=== PATIENT | male | born 1975 | race African-American/Black ===

== ENCOUNTER → 2017-11-17 10:51 | Outpatient (CLI) | payer OTHER, SELFPAY ==
[2017-11-17 14:04] LABS: Albumin, Serum 3.7 g/dL (3.2-5.0); BUN 20 mg/dL (7-18); BUN/Creat Ratio 13.3 RATIO (10-20); Calcium,Total 8.6 mg/dL (8.5-10.1); Chloride 107 mmol/L (98-107); EST Glomerular Filtration Rate 54 mL/min (>60); Est Glom Filt Rate - Afr Amer 66 mL/min (>60); Glucose 103 mg/dL (74-106); Phosphorus 2.3 mg/dL (2.5-4.9); Potassium 3.9 mmol/L (3.5-5.1); Sodium Level 140 mmol/L (136-145)
[2017-11-17 14:14] LABS: Protein:Creat Ratio 241 mg/g CRE (0-200)
== END ==
PROVIDERS: Family Provider Family Medicine; PCP Family Medicine; Visit Provider Internal Medicine Nephrology
DX: N18.3 Chronic kidney disease, stage 3 (moderate) (principal)
CPT/HCPCS: 36415; 80069; 82570; 84156

== ENCOUNTER → 2017-11-25 14:27 | Outpatient (CLI) | payer OTHER, SELFPAY | PROVIDERS: Family Provider Family Medicine; PCP Family Medicine; Visit Provider Internal Medicine Nephrology | DX: N18.3 Chronic kidney disease, stage 3 (moderate) (principal) ==

== ENCOUNTER → 2018-07-31 10:03 | Outpatient (CLI) | payer OTHER, SELFPAY ==
[2018-07-31 11:11] LABS: Albumin, Serum 3.6 g/dL (3.2-5.0); BUN 20 mg/dL (7-18); BUN/Creat Ratio 14.8 RATIO (10-20); Calcium,Total 8.8 mg/dL (8.5-10.1); Chloride 103 mmol/L (98-107); Creatinine, Serum 1.35 mg/dL (0.70-1.30); EST Glomerular Filtration Rate 61 mL/min (>60); Est Glom Filt Rate - Afr Amer 74 mL/min (>60); Glucose 101 mg/dL (74-106); Potassium 3.7 mmol/L (3.5-5.1); Sodium Level 140 mmol/L (136-145)
== END ==
PROVIDERS: Family Provider Family Medicine; PCP Family Medicine; Referring Provider Internal Medicine Nephrology; Visit Provider Internal Medicine Nephrology
DX: N18.3 Chronic kidney disease, stage 3 (moderate) (principal)
CPT/HCPCS: 36415; 80069

== ENCOUNTER → 2019-05-14 | Outpatient (CLI) | payer OTHER, SELFPAY ==
[2019-05-14 11:39] LABS: Protein, Urine (Random) 43.9 mg/dL (<11.9); Protein:Creat Ratio 171 mg/g CRE (0-200)
[2019-05-14 12:07] LABS: Albumin, Serum 3.5 g/dL (3.2-5.0); BUN 22 mg/dL (7-18); BUN/Creat Ratio 15.3 RATIO (10-20); Calcium,Total 8.7 mg/dL (8.5-10.1); Chloride 107 mmol/L (98-107); Creatinine, Serum 1.44 mg/dL (0.70-1.30); EST Glomerular Filtration Rate 56 mL/min (>60); Est Glom Filt Rate - Afr Amer 68 mL/min (>60); Glucose 104 mg/dL (74-106); Potassium 3.6 mmol/L (3.5-5.1); Sodium Level 142 mmol/L (136-145)
== END | disposition home or self-care (01) ==
LOC: LAB.FUTURE 10:56
PROVIDERS: Family Provider Family Medicine; PCP Family Medicine; Referring Provider Internal Medicine Nephrology; Visit Provider Internal Medicine Nephrology
DX: I12.9 Hypertensive chronic kidney disease with stage 1 through stage 4 chronic kidney disease, or unspecified chronic kidney disease (principal); N18.3 Chronic kidney disease, stage 3 (moderate)
CPT/HCPCS: 36415; 80069; 82570; 84156

== ENCOUNTER → 2020-02-14 | Outpatient (CLI) | payer OTHER, SELFPAY ==
[2020-02-14 13:05] LABS: Albumin, Serum 3.6 g/dL (3.2-5.0); BUN 18 mg/dL (7-18); BUN/Creat Ratio 13.3 RATIO (10-20); Calcium,Total 8.9 mg/dL (8.5-10.1); Chloride 107 mmol/L (98-107); Creatinine, Serum 1.35 mg/dL (0.70-1.30); EST Glomerular Filtration Rate 61 mL/min (>60); Est Glom Filt Rate - Afr Amer 73 mL/min (>60); Glucose 98 mg/dL (74-106); Phosphorus 2.2 mg/dL (2.5-4.9); Potassium 3.7 mmol/L (3.5-5.1); Sodium Level 141 mmol/L (136-145)
[2020-02-14 13:17] LABS: Protein, Urine (Random) 51.5 mg/dL (<11.9); Protein:Creat Ratio 183 mg/g CRE (0-200)
== END | disposition home or self-care (01) ==
LOC: POLAB3 10:44
PROVIDERS: Family Provider Family Medicine; PCP Family Medicine; Visit Provider Internal Medicine Nephrology
DX: N18.3 Chronic kidney disease, stage 3 (moderate) (principal)
CPT/HCPCS: 36415; 80069; 82570; 84156

== ENCOUNTER 2020-09-01 11:33 | Emergency (ER) | payer OTHER, SELFPAY ==
[2020-09-01 11:35] VITALS: BP 162/98; PULSE 71; RESP 16; TEMP 36.6; O2SAT 100; BMI 39.1
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
== END 2020-09-01 13:22 | disposition home or self-care (01) ==
PROVIDERS: Emergency Provider Physician Assistant Medical; PCP Family Medicine
DX: S06.0X0A Concussion without loss of consciousness, initial encounter (principal); V43.52XA Car driver injured in collision with other type car in traffic accident, initial encounter; Y93.I9 Activity, other involving external motion; Y92.410 Unspecified street and highway as the place of occurrence of the external cause; Y99.8 Other external cause status
CPT/HCPCS: 70450; 99282

== ENCOUNTER → 2020-10-16 09:16 | Outpatient (CLI) | payer OTHER, SELFPAY ==
[2020-10-16 12:39] LABS: Albumin, Serum 3.7 g/dL (3.2-5.0); BUN 18 mg/dL (7-18); BUN/Creat Ratio 12.6 RATIO (10-20); Chloride 104 mmol/L (98-107); Creatinine, Serum 1.43 mg/dL (0.70-1.30); EST Glomerular Filtration Rate 57 mL/min (>60); Est Glom Filt Rate - Afr Amer 68 mL/min (>60); Glucose 96 mg/dL (74-106); Phosphorus 2.9 mg/dL (2.5-4.9); Potassium 3.8 mmol/L (3.5-5.1); Sodium Level 138 mmol/L (136-145)
[2020-10-16 12:52] LABS: Protein:Creat Ratio 397 mg/g CRE (0-200)
== END ==
PROVIDERS: PCP Family Medicine; Visit Provider Internal Medicine Nephrology
DX: N18.30 Chronic kidney disease, stage 3 unspecified (principal)
CPT/HCPCS: 36415; 80069; 82570; 84156

== ENCOUNTER 2020-12-12 08:10 | Outpatient (RCR) | payer OTHER, SELFPAY | END 2021-02-12 23:59 | LOC: IMMUN 08:10 | PROVIDERS: PCP Family Medicine; Visit Provider Family Medicine | DX: Z23 Encounter for immunization (principal) | CPT/HCPCS: 0001A; 0002A; 91300 ==

== ENCOUNTER → 2021-05-07 09:47 | Outpatient (CLI) | payer OTHER, SELFPAY ==
[2021-05-07 10:24] LABS: Protein, Urine (Random) 13.1 mg/dL (<11.9); Protein:Creat Ratio 80 mg/g CRE (0-200)
[2021-05-07 10:39] LABS: Albumin, Serum 3.7 g/dL (3.2-5.0); BUN 25 mg/dL (7-18); Calcium,Total 9.2 mg/dL (8.5-10.1); Chloride 106 mmol/L (98-107); Creatinine, Serum 1.25 mg/dL (0.70-1.30); EST Glomerular Filtration Rate 66 mL/min (>60); Est Glom Filt Rate - Afr Amer 80 mL/min (>60); Glucose 100 mg/dL (74-106); Phosphorus 3.2 mg/dL (2.5-4.9); Potassium 3.9 mmol/L (3.5-5.1); Sodium Level 138 mmol/L (136-145)
== END ==
PROVIDERS: PCP Family Medicine; Referring Provider Internal Medicine Nephrology; Visit Provider Internal Medicine Nephrology
DX: I12.9 Hypertensive chronic kidney disease with stage 1 through stage 4 chronic kidney disease, or unspecified chronic kidney disease (principal); N18.30 Chronic kidney disease, stage 3 unspecified
CPT/HCPCS: 36415; 80069; 82570; 84156

== ENCOUNTER → 2022-03-29 | Outpatient (CLI) | payer OTHER, SELFPAY ==
[2022-03-29 10:43] LABS: Hematocrit 46.7 % (40-54); Hemoglobin 15.2 g/dL (13.0-16.5); Mean Corp Hgb Conc 32.5 g/dL (32-36); Mean Corpuscular Hgb 29.6 pg (27.0-32.0); Mean Corpuscular Volume 90.9 fL (80-94); Mean Platelet Vol. 10.6 fl (6.2-12.0); Platelet Count 270 K/mm3 (150-450); RBC Distribution Width CV 12.5 % (11.6-14.6); RBC Distribution Width SD 41.3 fl (35.1-43.9); Red Blood Count 5.14 M/mm3 (4.6-6.2); White Blood Count 6.6 K/mm3 (4.4-11.0)
[2022-03-29 11:28] LABS: Albumin, Serum 3.4 g/dL (3.2-5.0); BUN 17 mg/dL (7-18); BUN/Creat Ratio 11.9 RATIO (10-20); Calcium,Total 8.8 mg/dL (8.5-10.1); Chloride 107 mmol/L (98-107); Creatinine, Serum 1.43 mg/dL (0.70-1.30); EST Glomerular Filtration Rate 56 mL/min (>60); Est Glom Filt Rate - Afr Amer 68 mL/min (>60); Glucose 106 mg/dL (74-106); Phosphorus 2.8 mg/dL (2.5-4.9); Potassium 3.7 mmol/L (3.5-5.1); Sodium Level 139 mmol/L (136-145)
== END | disposition home or self-care (01) ==
LOC: LAB 10:25
PROVIDERS: PCP Family Medicine; Visit Provider Internal Medicine Nephrology
DX: N18.30 Chronic kidney disease, stage 3 unspecified (principal)
CPT/HCPCS: 36415; 80069; 85027

== ENCOUNTER → 2022-11-29 | Outpatient (CLI) | payer OTHER, SELFPAY ==
[2022-11-29 10:18] LABS: Albumin, Serum 3.5 g/dL (3.2-5.0); BUN 20 mg/dL (7-18); BUN/Creat Ratio 15.2 RATIO (10-20); Calcium,Total 8.9 mg/dL (8.5-10.1); Chloride 108 mmol/L (98-107); Creatinine, Serum 1.32 mg/dL (0.70-1.30); EST Glomerular Filtration Rate 62 mL/min (>60); Est Glom Filt Rate - Afr Amer 74 mL/min (>60); Glucose 112 mg/dL (74-106); Phosphorus 2.6 mg/dL (2.5-4.9); Potassium 3.9 mmol/L (3.5-5.1); Sodium Level 140 mmol/L (136-145)
[2022-11-29 10:22] LABS: Protein, Urine (Random) 19.6 mg/dL (<11.9); Protein:Creat Ratio 169 mg/g CRE (0-200)
== END | disposition home or self-care (01) ==
LOC: LAB 09:14
PROVIDERS: PCP Family Medicine; Visit Provider Internal Medicine Nephrology
DX: N18.30 Chronic kidney disease, stage 3 unspecified (principal)
CPT/HCPCS: 36415; 80069; 82570; 84156

== ENCOUNTER → 2023-11-21 | Outpatient (CLI) | payer OTHER, SELFPAY ==
--- OUTSIDE RECORDS SUMMARY | 2023-11-21 10:41 | XMS RPT_ITS | CCD ---
Author Name Unknown Address [address] [facility] [address] [place] [address] Organization [facility] Care Team Providers Care Blade Sharpener Name Role Phone Sonido Knutson MD Primary Care Provider [phone] SONIDO KNUTSON Primary Care Unavailable SONIDO KNUTSON Attending SONIDO Benz Referring Unavailable SONIDO KNUTSON Primary Care Unavailable FALLON CULVER Attending Unavailable SONIDO KNUTSON Attending Unavailable SONIDO KNUTSON Primary Care Unavailable SONIDO KNUTSON Primary Care Unavailable SONIDO KNUTSON Primary Care Unavailable Medications Current Medications Medication Drug Class(es) Dates Sig (Normalized) Sig (Original) cephalexin 500 mg oral capsule (1 source) Cephalosporin Antibacterial Start: 06-10-2023 End: 06-17-2023 take 1 capsule by mouth twice daily cephALEXin (KEFLEX) 500 mg capsule Take 1 capsule by mouth two times a day for 7 days. 14 capsule 0 06/10/2023 06/17/2023 Active Completed/Discontinued Medications Medication Drug Class(es) Dates Sig (Normalized) Sig (Original) amLODIPine 10 mg oral tablet (6 sources) Dihydropyridine Calcium Channel Meri Start: 01-27-2023 End: 08-07-2023 take 1 tablet by mouth once daily amLODIPine (NORVASC) 10 mg tablet Take 1 tablet by mouth once daily. 90 tablet 3 08/07/2023 Active Problems Active Problems Problem Classification Problem Date Documented Da te Episodic/Chronic Chronic kidney disease (6 sources) Chronic kidney disease stage 3; Translations: [Stage 3 chronic kidney disease, unspecified whether stage 3a or 3b CKD (HCC)] Onset: 09-14-2017 Chronic Chronic kidney disease (1 source) Chronic kidney disease; Translations: [Stage 3 chronic kidney disease, unspecified whether stage 3a or 3b CKD (HCC)] Onset: 09-14-2017 Essential hypertension (8 sources) Essential hypertension; Translations: [Essential (primary) hypertension] Onset: 06-30-2007 Chronic Immunizations and screening for infectious disease (2 sources) Needs influenza immunization; Translations: [Encounter for immunization] Episodic Influenza (2 sources) Influenza-like illness; Translations: [Influenza due to unidentified influenza virus with other respiratory manifestations] 08-30-2023 Episodic Other nutritional; endocrine; and metabolic disorders (5 sources) Metabolic syndrome X; Translations: [Metabolic syndrome] Onset: 06-30-2007 02-01-2008 Chronic Other nutritional; endocrine; and metabolic disorders (5 sources) Morbid obesity; Translations: [Morbid (severe) obesity due to excess calories] Onset: 05-02-2010 03-31-2011 Chronic Other screening for suspected conditions (not mental disorders or infectious disease) (5 sources) Patient encounter status; Translations: [Encounter for screening for malignant neoplasm of colon] Onset: 11-09-2023 11-09-2023 Episodic Residual codes; unclassified (6 sources) Obstructive sleep apnea syndrome; Translations: [Obstructive sleep apnea (adult) (pediatric)] Onset: 05-02-2010 Chronic Residual codes; unclassified (1 source) Obstructive sleep apnea (adult) (pediatric); Translations: [ANNE (obstructive sleep apnea)] Onset: 09-02-2021 Chronic Superficial injury; contusion (1 source) Insect bite of trunk; Translations: [Insect bite (nonvenomous) of abdominal wall, initial encounter] 06-10-2023 Episodic Past or Other Problems Problem Classification Problem Date Documented Da te Episodic/Chronic Abdominal hernia (5 sources) Hernia of anterior abdominal wall; Translations: [Ventral hernia without obstruction or gangrene] Onset: 03-28-2013 03-28-2013 Episodic Residual codes; unclassified (5 sources) Family history of prostate cancer; Translations: [Family history of malignant neoplasm of prostate] Onset: 10-16-2020 10-16-2020 Episodic Results Test Name Value Interpretation Reference Range Facil ity Vital Signs Date Time Vital Sign Value Performing Clinician Clare atkins 11-09-2023 10:43-0500 Diastolic blood pressure 88 mm[Hg] Fallon Culver MD Work Phone: [facility] 11-09-2023 10:43-0500 Heart rate 67 /min Fallon Culver MD Work Phone: [facility] 11-09-2023 10:43-0500 Respiratory rate 18 /min Fallon Culver MD Work Phone: [facility] 11-09-2023 10:43-0500 SaO2% (BldA) [Mass fraction] 97 % Fallon Culver MD Work Phone: [facility] 11-09-2023 10:43-0500 Systolic blood pressure 136 mm[Hg] Fallon Culver MD Work Phone: [facility] 08-30-2023 08:36-0500 Body temperature 100.2 [degF] Bentley Arun SUPERANNUATION FUNDS MANAGER.PRESSURE VESSEL INSPECTOR Work Phone: [facility] 08-30-2023 08:36-0500 Body weight 163.29 kg Bentley Arun SUPERANNUATION FUNDS MANAGER.PRESSURE VESSEL INSPECTOR Work Phone: [facility] 08-30-2023 08:36-0500 Diastolic blood pressure 84 mm[Hg] Bentley Arun SUPERANNUATION FUNDS MANAGER.PRESSURE VESSEL INSPECTOR Work Phone: [facility] 08-30-2023 08:36-0500 Heart rate 106 /min Bentley Arun SUPERANNUATION FUNDS MANAGER.PRESSURE VESSEL INSPECTOR Work Phone: [facility] 08-30-2023 08:36-0500 Respiratory rate 18 /min Bentley Arnu SUPERANNUATION FUNDS MANAGER.PRESSURE VESSEL INSPECTOR Work Phone: [facility] 08-30-2023 08:36-0500 SaO2% (BldA) [Mass fraction] 96 % Bentley Arun SUPERANNUATION FUNDS MANAGER.PRESSURE VESSEL INSPECTOR Work Phone: [facility] 08-30-2023 08:36-0500 Systolic blood pressure 138 mm[Hg] Bentley Arun SUPERANNUATION FUNDS MANAGER.PRESSURE VESSEL INSPECTOR Work Phone: [facility] 06-10-2023 07:38-0400 Body temperature 97.11 [degF] Senia Shanda SUPERANNUATION FUNDS MANAGER.PRESSURE VESSEL INSPECTOR Work Phone: [facility] 06-10-2023 07:38-0400 Body weight 164.56 kg Senia Shanda SUPERANNUATION FUNDS MANAGER.PRESSURE VESSEL INSPECTOR Work Phone: [facility] 06-10-2023 07:38-0400 Diastolic blood pressure 116 mm[Hg] Senia Shanda SUPERANNUATION FUNDS MANAGER.PRESSURE VESSEL INSPECTOR Work Phone: [facility] 06-10-2023 07:38-0400 Heart rate 72 /min Senia Shanda SUPERANNUATION FUNDS MANAGER.PRESSURE VESSEL INSPECTOR Work Phone: [facility] 06-10-2023 07:38-0400 Respiratory rate 18 /min Senia Shanda SUPERANNUATION FUNDS MANAGER.PRESSURE VESSEL INSPECTOR Work Phone: [facility] 06-10-2023 07:38-0400 SaO2% (BldA) [Mass fraction] 96 % Senia Shanda SUPERANNUATION FUNDS MANAGER.PRESSURE VESSEL INSPECTOR Work Phone: [facility] 06-10-2023 07:38-0400 Systolic blood pressure 169 mm[Hg] Senia Shanda SUPERANNUATION FUNDS MANAGER.PRESSURE VESSEL INSPECTOR Work Phone: [facility] 07-22-2022 08:52-0500 Body weight 166.29 kg Sonido Knutson MD Work Phone: [facility] 07-22-2022 08:52-0500 Diastolic blood pressure 82 mm[Hg] Sonido Knutson MD Work Phone: [facility] 07-22-2022 08:52-0500 Heart rate 68 /min Sonido Knutson MD Work Phone: [facility] 07-22-2022 08:52-0500 Respiratory rate 16 /min Sonido Knutson MD Work Phone: [facility] 07-22-2022 08:52-0500 Systolic blood pressure 124 mm[Hg] Sonido Knutson MD Work Phone: [facility] Encounters Encounter Date Encounter Type Care Provider Facility Start: 11-09-2023 End: 11-09-2023 joshua KNUTSON Facility:[facility] Start: 11-09-2023 End: 11-09-2023 Subsequent hospital visit by physician Fallon Culver MD Work Phone: Ambulatory Surgery Procedures Date Procedure Procedure Detail Performing Clinician Start: 11-09-2023 Colonoscopy flx dx w /collj spec when pfrmd Sonido Knutson MD Work Phone: Start: 11-09-2023 Colonoscopy Fallon Culver MD Work Phone: Start: 08-30-2023 INFLUENZA A&B MOLECU LAR (POC) Bentley Dias SUPERANNUATION FUNDS MANAGER.PRESSURE VESSEL INSPECTOR Work Phone: Start: 07-22-2022 INFLUENZA VACCINE QUADRIVALENT 6 MO - 64 YRS IM Sonido Knutson MD Work Phone: Start: 07-22-2022 PFIZER-BIONTECH COVI D-19 BIVALENT BOOSTER VACCINE, AGE 12+ YR Sonido Knutson MD Work Phone: Start: 11-15-2018 Lipid 1996 panel - S myah or Plasma Senia Land SUPERANNUATION FUNDS MANAGER.PRESSURE VESSEL INSPECTOR Work Phone: Plan of Treatment Date Care Activity Detail Author Start: 03-29-2025 DIABETES SCREEN DIABETES SCREEN [facility] Start: 03-29-2025 Diabetes Screening Diabetes Screenin g [facility] Start: 11-08-2024 Screening for malign ant neoplasm of colon [facility] Start: 10-06-2024 Annual PCP Team Bread Baker mayda Disease Visit Annual PCP Team Chronic Disease Visit [facility] Start: 01-28-2024 Annual PCP Team Bread Baker mayda Disease Visit Annual PCP Team Chronic Disease Visit [facility] Start: 01-28-2024 Colorectal Cancer Screening Colorectal Cancer Screening [facility] Immunizations Immunization Date Immunization Notes Care Provider Fa cility 10-06-2023 COVID-19 vaccine, ag e 12+ yr, season (PFIZER-BIONTECH) Fallon Culver MD Work Phone: [facility] 10-06-2023 influenza, injectabl e, quadrivalent, contains preservative Fallon Culver MD Work Phone: [facility] 07-22-2022 COVID-19 booster vaccine, age 12+ yr, bivalent (PFIZER-BIONTECH) Sonido Knutson MD Work Phone: [facility] 07-22-2022 influenza, injectabl e, quadrivalent, contains preservative Sonido Knutson MD Work Phone: [facility] 07-22-2022 influenza virus vacc ine, unspecified formulation Senia Land PRESSURE VESSEL INSPECTOR Work Phone: [facility] 07-08-2021 influenza, seasonal, injectable Sonido Knutson MD Work Phone: [facility] 07-09-2020 influenza, seasonal, injectable Sonido Knutson MD Work Phone: [facility] 07-11-2019 influenza, seasonal, injectable Sonido Knutsno MD Work Phone: [facility] 07-12-2018 influenza, injectabl e, quadrivalent, contains preservative Sonido Knutson MD Work Phone: [facility] 07-08-2017 influenza, injectabl e, quadrivalent, contains preservative Sonido Knutson MD Work Phone: [facility] 08-24-2015 influenza, injectabl e, quadrivalent, contains preservative Sonido Knutson MD Work Phone: [facility] 07-27-2014 influenza, seasonal, injectable Sonido Knutson MD Work Phone: [facility] Work Phone: 04-29-2012 tetanus toxoid, redu lynn diphtheria toxoid, and acellular pertussis vaccine, adsorbed Sonido Knutson MD Work Phone: [facility] 08-18-2011 influenza virus vacc ine, unspecified formulation Sonido Knutson MD Work Phone: [facility] 08-06-2010 influenza virus vacc ine, unspecified formulation Sonido Knutson MD Work Phone: [facility] Work Phone: 06-30-2007 tetanus toxoid, redu lynn diphtheria toxoid, and acellular pertussis vaccine, adsorbed Sonido Knutson MD Work Phone: [facility] Work Phone: 05-18-2007 pneumococcal polysaccharide vaccine, 23 valent Sonido Knutson MD Work Phone: [facility] Work Phone: Payers Date Payer Category Payer Unknown [id number] 2019 Unknown [id number] Social History Date Type Detail Facility [facility]: [facility] Start: 07-22-2022 Tobacco use and exposure Smokeless tobacco non-user [facility] Start: 07-22-2022 End: 11-09-2023 Alcohol intake Current non-drinker of alcohol (finding) [facility] Start: 1975 Sex Assigned At Not on file C [facility] Start: 07-12-2022 End: 07-22-2022 Exposure to SARS-CoV-2 (event) Not sure [facility] Start: 01-27-2023 End: 06-10-2023 History of Social function [facility] Work Phone: Start: 01-27-2023 End: 06-10-2023 Tobacco use panel [facility] Work Phone: Adult Depression Screening Assessment 0 [facility] Work Phone: Clinical Notes 05-23-2009 to 11-09-2023 Discharge Instr - Nursing - Marnie Christianson RN - 11/09/2023 10:46 AM Marnie Trejo RN - 11/09/2023 10:13 AM Fallon Rosado MD - 11/09/2023 10:00 AM ESTPatient Instructions Note Date & Type Note Facility 11-09-2023 Note HNO ID: [id number] Author: MARNIE CHRISTIANSON RN Service: ? Author Type: Registered Nurse Type: Nursing Progress Note Filed: 11/09/2023 10:42 Note Text: Abdomen soft non-distended. Will continue to monitor. [facility] 11-09-2023 Miscellaneous Notes Formattin g of this note might be different from the original. The patient received a copy of Colonoscopy discharge instructions that contain information for how to contact the physician who performed the procedure and when to seek medical care. documented in this encounter [facility] 11-09-2023 Nurse Note Abdomen soft non-distended. Will continue to monitor. documented in this encounter [facility] 11-09-2023 History and physical note UPDATED PROCEDURAL SEDATION HISTORY AND PHYSICAL EXAMINATION SERVICE DATE: 11/09/2023 SERVICE TIME: 9:29 PHYSICAL EXAM MUST BE COMPLETED ON ADMISSION PROCEDURE: colonoscopy, possible biopsies Procedure Indications: screening for colon cancer The History and Physical (completed in the past 30 days) has been reviewed and the patient has been examined. The contents accurately reflect the patient's condition with the following additions or revisions since the H&P was completed. ASA Class: ASA Class:: Patient with severe systemic disease Examination indicates no changes. AIRWAY: Airway Visualization of Uvula: Yes Mouth opening greater than 2 fingerbreadths: Yes Neck Full Range of Motion: Yes LUNGS: Lungs clear to auscultation CARDIAC: Regular rhythm,Regular rate Provisional Diagnosis/Treatment Plan: colonoscopy, possible biopsies This H&P can be found in the Electronic Medical Record . SIGNATURE: Fallon Culver MD PATIENT NAME: Magnolia Henriquez DATE: November 09, 2023 TIME: 9:29 AM Source Note - Fallon Culver MD - 11/09/2023 10:00 AM EST HISTORY AND PHYSICAL Magnolia Henriquez 1975 REFERRING PHYSICIAN: Sonido Knutson MD CHIEF COMPLAINT: No chief complaint on file. HPI: The patient is a 48 year old male presents for screening for colon cancer via colonoscopy The patient denies blood in stools, denies abdominal pain, and denies changes in bowel habits. The patient notes no colon cancer in immediate family. The patient has not had previous colonoscopy. PAST MEDICAL HISTORY Diagnosis Date Chronic kidney disease 09/14/2017 Dysmetabolic syndrome X Hypertension Morbid obesity (HCC) ANNE (obstructive sleep apnea) on CPAP PAST SURGICAL HISTORY Procedure Laterality Date HERNIA REPAIR W/MESH 04/12/2013 Ventral hernia w/ medium Ventralex patch Current Outpatient Medications Medication Sig labetalol (TRANDATE) 200 mg tablet Take 1 tablet by mouth two times a day. amLODIPine (NORVASC) 10 mg tablet Take 1 tablet by mouth once daily. losartan-hydroCHLOROthiazide (HYZAAR) 100-25 mg per tablet Take 1 tablet by mouth once daily. triamcinolone acetonide (KENALOG) 0.1 % cream Apply 1 application to affected area three times a day. Apply sparingly to area for rash/itching. CPAP AutoPAP 10-20 cmH2O. Dx: ANNE No current facility-administered medications for this encounter. ALLERGIES: Patient has no known allergies. PERSONAL HISTORY: Social History Tobacco Use Smoking status: Never Smokeless tobacco: Never Vaping Use Vaping Use: Never used Substance Use Topics Alcohol use: No Drug use: No FAMILY HISTORY Problem Relation Age of Onset Thyroid Mother Kidney Disease Father dialysis Diabetes Other Cousins, uncles Hypertension Father REVIEW OF SYSTEMS: Denies fevers Denies chest pain Denies shortness of breath Physical examination: Vital signs in chart, reviewed and noted by me General - WD/WN in no apparent distress, alert and oriented Head - Normocephalic. EOM intact with sclera clear. Mouth with mucus membranes moist. Neck - supple with no jugular venous distention noted. Trachea is midline. Lungs - normal breath sounds, normal respiratory motion, no adventitial sounds noted. Heart - normal heart sounds. Regular rate. Abdomen - soft and benign. Extremities - no pitting edema noted. Skin - Normal skin integrity. Neurological - non focal Psych - calm and appropriate Impression: screening for colon cancer, Discussion/Plan/Recommendation s: I have discussed the above with the patient. I have offered colonoscopy , possible biopsies I have explained the procedure to the patient. I have counseled the patient as to the risks of the procedure, including but not limited to: infection, bleeding, injury to any intrabdominal organs such as liver/spleen, perforation of the GI tract, inability to complete the procedure, complications of anesthesia, etc. - the patient understands. The patient wishes to proceed. I have answered all questions to the patient s satisfaction and the patient has no further questions. . Fallon Culver MD HISTORY AND PHYSICAL Magnolia Henriquez 1975 REFERRING PHYSICIAN: Sonido Knutson MD CHIEF COMPLAINT: No chief complaint on file. HPI: The patient is a 48 year old male presents for screening for colon cancer via colonoscopy The patient denies blood in stools, denies abdominal pain, and denies changes in bowel habits. The patient notes no colon cancer in immediate family. The patient has not had previous colonoscopy. PAST MEDICAL HISTORY Diagnosis Date Chronic kidney disease 09/14/2017 Dysmetabolic syndrome X Hypertension Morbid obesity (HCC) ANNE (obstructive sleep apnea) on CPAP PAST SURGICAL HISTORY Procedure Laterality Date HERNIA REPAIR W/MESH 04/12/2013 Ventral hernia w/ medium Ventralex patch Current Outpatient Medications Medication Sig labetalol (TRANDATE) 200 mg tablet Take 1 tablet by mouth two times a day. amLODIPine (NORVASC) 10 mg tablet Take 1 tablet by mouth once daily. losartan-hydroCHLOROthiazide (HYZAAR) 100-25 mg per tablet Take 1 tablet by mouth once daily. triamcinolone acetonide (KENALOG) 0.1 % cream Apply 1 application to affected area three times a day. Apply sparingly to area for rash/itching. CPAP AutoPAP 10-20 cmH2O. Dx: ANNE No current facility-administered medications for this encounter. ALLERGIES: Patient has no known allergies. PERSONAL HISTORY: Social History Tobacco Use Smoking status: Never Smokeless tobacco: Never Vaping Use Vaping Use: Never used Substance Use Topics Alcohol use: No Drug use: No FAMILY HISTORY Problem Relation Age of Onset Thyroid Mother Kidney Disease Father dialysis Diabetes Other Cousins, uncles Hypertension Father REVIEW OF SYSTEMS: Denies fevers Denies chest pain Denies shortness of breath Physical examination: Vital signs in chart, reviewed and noted by me General - WD/WN in no apparent distress, alert and oriented Head - Normocephalic. EOM intact with sclera clear. Mouth with mucus membranes moist. Neck - supple with no jugular venous distention noted. Trachea is midline. Lungs - normal breath sounds, normal respiratory motion, no adventitial sounds noted. Heart - normal heart sounds. Regular rate. Abdomen - soft and benign. Extremities - no pitting edema noted. Skin - Normal skin integrity. Neurological - non focal Psych - calm and appropriate Impression: screening for colon cancer, Discussion/Plan/Recommendation s: I have discussed the above with the patient. I have offered colonoscopy , possible biopsies I have explained the procedure to the patient. I have counseled the patient as to the risks of the procedure, including but not limited to: infection, bleeding, injury to any intrabdominal organs such as liver/spleen, perforation of the GI tract, inability to complete the procedure, complications of anesthesia, etc. - the patient understands. The patient wishes to proceed. I have answered all questions to the patient s satisfaction and the patient has no further questions. . Fallon Culver MD documented in this encounter [facility] 10-06-2023 Note HNO ID: [id number] Author: ?, ?, ? Service: ? Author Type: ? Type: Progress Notes Filed: 10/06/2023 14:15 Note Text: 10-06...contacted patient scheduled colonoscopy 11-10-2023. Sent [employer] Prep Instructions to his [employer] Roslyn Hall [facility] 10-06-2023 Note HNO ID: [id number] Author: SONIDO KNUTSON MD Service: ? Author Type: Physician Type: Progress Notes Filed: 10/06/2023 10:39 Note Text: Chief Complaint Patient presents with: Follow Up Immunizations: Flu vaccination HPI aMgnolia Henriquez is a 48 year old male who presents here today for a follow up. Pt here today for a 6 month follow up. Son is 11 years old, busy with sports, football and basketball. HM: Depression screening; denies feeling depressed or hopeless. Depression screening tool completed and reviewed. Based on score and interview, patient is not at risk for depression. Screening tool discussed with patient, and I recommended no further intervention at this time Denies any stomach, bowel or urinary issues. No family hx of colon cancer. Family hx of prostate cancer. HTN: Denies checking his BP at home or having symptoms of chest pain, sob or dizziness. Does have a monitor at home if he needs too. On current regimen of Norvasc 10 mg once daily, Hyzaar 100-25 mg once daily and Labetalol 100 mg 2 tab po bid. CKD: Follows with Dr. Martino, Nephrology every 6 months. ANNE: Uses CPAP 10-20 cm of water. Doing well with use of CPAP, feels he sleeps well with machine. Receives supplies through [employer]. Lipid: Tries to watch diet and walks some for exercise. No medications. Past medical history, appointments, medications, allergies reviewed. Previous Medical History PAST MEDICAL HISTORY Diagnosis Date Chronic kidney disease 09/14/2017 Dysmetabolic syndrome X Hypertension Morbid obesity (HCC) ANNE (obstructive sleep apnea) on CPAP Previous Surgical History PAST SURGICAL HISTORY Procedure Laterality Date HERNIA REPAIR W/MESH 04/12/2013 Ventral hernia w/ medium Ventralex patch Family History FAMILY HISTORY Problem Relation Age of Onset Thyroid Mother Kidney Disease Father dialysis Diabetes Other Cousins, uncles Hypertension Father Patient Allergies ALLERGIES No Known Allergies Current Medications Current Outpatient Medications on File Prior to Visit Medication Sig labetalol (TRANDATE) 200 mg tablet Take 1 tablet by mouth two times a day. amLODIPine (NORVASC) 10 mg tablet Take 1 tablet by mouth once daily. losartan-hydroCHLOROthiazide (HYZAAR) 100-25 mg per tablet Take 1 tablet by mouth once daily. triamcinolone acetonide (KENALOG) 0.1 % cream Apply 1 application to affected area three times a day. Apply sparingly to area for rash/itching. CPAP AutoPAP 10-20 cmH2O. Dx: ANNE No current facility-administered medications on file prior to visit. Social History Social History Tobacco Use Smoking status: Never Smokeless tobacco: Never Vaping Use Vaping Use: Never used Substance Use Topics Alcohol use: No Drug use: No EXAM: BP 138/84 Pulse 84 Resp 16 Wt (!) 160.1 kg (352 lb 14.4 oz) BMI 42.96 kg/m? General Appearance: Well appearing, alert, in no acute distress, well-hydrated, well nourished. and Obese. Lungs: Lungs clear to auscultation. No wheezing, rhonchi, rales.. Heart: RRR without murmur, gallop, or rubs. No ectopy. Health Maintenance List Hepatitis B Vaccine(1 of 3 - 3-dose series) Never done BP Controlled (<130/80) Never done DTaP,Tdap,Td Vaccine(3 - Td or Tdap) due on 04/29/2022 Serum Creatinine due on 03/29/2023 Hemoglobin/Hematocrit due on 03/29/2023 Influenza Vaccine(1) due on 05/08/2023 Covid-19 Vaccine( - season) due on 05/08/2023 Depression Assessment due on 09/07/2023 Colorectal Cancer Screening due on 01/28/2024 Hepatitis C Screening due on 01/28/2024 HIV Screening due on 01/28/2024 Lipid Screening due on 11/16/2023 Annual PCP Team Chronic Disease Visit due on 01/28/2024 Diabetes Screening due on 03/29/2025 Data reviewed None ASSESSMENT/PLAN: 1. Primary hypertension - ICD9: 401.9, ICD10: I10 (primary diagnosis) - Controlled - Continue current medications - Recommend home blood pressure monitoring, to bring results to next visit - Encouraged sodium restriction, DASH or Mediterranean diet - Recommend regular aerobic exercise 2. Need for influenza vaccination - ICD9: V04.81, ICD10: Z23 - INFLUENZA VACCINE, AGE 6 MO - 64 YR, QUADRIVALENT (AFLURIA, FLULAVAL, FLUZONE) 3. Need for vaccination - ICD9: V05.9, ICD10: Z23 - INFLUENZA VACCINE, AGE 6 MO - 64 YR, QUADRIVALENT (AFLURIA, FLULAVAL, FLUZONE) - Kilopass-MetaModix COVID-19 VACCINE ( SEASON) AGE 12+ YR 4. Special screening for malignant neoplasms, colon - ICD9: V76.51, ICD10: Z12.11 - COLONOSCOPY SCREENING - PEG 3350 240 GRAM-ELECTROLYTES 22.72 GRAM-6.72 G-5.84 G POWDR FOR SOLN 5. ANNE (obstructive sleep apnea) AHI 110 - ICD9: 327.23, ICD10: G47.33 Continue CPAP 6. Stage 3 chronic kidney disease, unspecified whether stage 3a or 3b CKD (HCC) - ICD9: 585.3, ICD10: N18.30 - eGFR: Stable - Follow up with kidney medicine 7. Morbid obesity (HCC) - ICD9: 278.01, ICD10: E66.01 Stable - Behavioral inte (more content not included)... [facility] 08-30-2023 Note HNO ID: [id number] Author: Bentley Dias APRN.GAURANG Service: ? Author Type: Nurse Practitioner Type: Progress Notes Filed: 08/30/2023 9:35 AM Note Text: Subjective HPI HPI Magnolia Henriquez is a 48 year old male who presents today for CC of cough, congestion, fever, body aches. This started 2 days ago. Has tried otc medication for relief. Symptoms are worsened by nothing. Risk factors sick exposures at work. Hx of renal disease. .Patient presents with: Chest Congestion: cough and fatigue x 2 days PAST MEDICAL HISTORY Diagnosis Date Chronic kidney disease 09/14/2017 Dysmetabolic syndrome X Hypertension Morbid obesity (HCC) ANNE (obstructive sleep apnea) on CPAP PAST SURGICAL HISTORY Procedure Laterality Date HERNIA REPAIR W/MESH 04/12/2013 Ventral hernia w/ medium Ventralex patch ALLERGIES Patient has no known allergies. MEDICATIONS labetalol (TRANDATE) 200 mg tablet Take 1 tablet by mouth two times a day. amLODIPine (NORVASC) 10 mg tablet Take 1 tablet by mouth once daily. losartan-hydroCHLOROthiazide (HYZAAR) 100-25 mg per tablet Take 1 tablet by mouth once daily. triamcinolone acetonide (KENALOG) 0.1 % cream Apply 1 application to affected area three times a day. Apply sparingly to area for rash/itching. CPAP AutoPAP 10-20 cmH2O. Dx: ANNE FAMILY HISTORY Problem Relation Age of Onset Thyroid Mother Kidney Disease Father dialysis Diabetes Other Cousins, uncles Hypertension Father Social History Tobacco Use Smoking status: Never Smokeless tobacco: Never Vaping Use Vaping Use: Never used Substance Use Topics Alcohol use: No Drug use: No Review of Systems Constitutional: Positive for fever. HENT: Positive for congestion and sore throat. Negative for ear pain and nosebleeds. Respiratory: Positive for cough. Negative for shortness of breath and wheezing. Musculoskeletal: Negative for neck pain. Skin: Negative for itching and rash. Objective Blood pressure 138/84, pulse 106, temperature 37.9 ?C (100.2 ?F), resp. rate 18, weight (!) 163.3 kg (360 lb), SpO2 96%. 65 Physical Exam Constitutional: General: He is not in acute distress. Appearance: He is not toxic-appearing or diaphoretic. HENT: Head: Normocephalic and atraumatic. Right Ear: Hearing, tympanic membrane, ear canal and external ear normal. Left Ear: Hearing, tympanic membrane, ear canal and external ear normal. Nose: Nose normal. Mouth/Throat: Pharynx: Uvula midline. No pharyngeal swelling, oropharyngeal exudate, posterior oropharyngeal erythema or uvula swelling. Eyes: General: Lids are normal. No scleral icterus. Right eye: No discharge. Left eye: No discharge. Conjunctiva/sclera: Conjunctivae normal. Pupils: Pupils are equal, round, and reactive to light. Neck: Trachea: Trachea normal. Cardiovascular: Rate and Rhythm: Normal rate and regular rhythm. Heart sounds: Normal heart sounds. Pulmonary: Effort: Pulmonary effort is normal. Breath sounds: Normal breath sounds. Musculoskeletal: Cervical back: Normal range of motion and neck supple. Lymphadenopathy: Cervical: No cervical adenopathy. Right cervical: No superficial cervical adenopathy. Left cervical: No superficial cervical adenopathy. Skin: Findings: No rash. Neurological: Mental Status: He is alert and oriented to person, place, and time. ASSESSMENT/PLAN: 1. Influenza A - ICD9: 487.1, ICD10: J10.1 (primary diagnosis) -discussed expected course -discussed supportive care -discussed red flags and reasons for f/u -discussed contagiousness, reason/when close family members should f/u, and whom to avoid -f/u in 3-5 days if symptoms worsening Creatinine clearance calculated to be 84 - OSELTAMIVIR 75 MG CAPSULE 2. Influenza-like illness - ICD9: 487.1, ICD10: J11.1 - INFLUENZA AANDB MOLECULAR (POC) - OSELTAMIVIR 75 MG CAPSULE Bentley Dias APRN.[facility] 08-30-2023 History of Presen t illness Narrative Subjective HPI HPI Magnolia Henriquez is a 48 year old male who presents today for CC of cough, congestion, fever, body aches. This started 2 days ago. Has tried otc medication for relief. Symptoms are worsened by nothing. Risk factors sick exposures at work. Hx of renal disease. .Patient presents with: Chest Congestion: cough and fatigue x 2 days PAST MEDICAL HISTORY Diagnosis Date Chronic kidney disease 09/14/2017 Dysmetabolic syndrome X Hypertension Morbid obesity (HCC) ANNE (obstructive sleep apnea) on CPAP PAST SURGICAL HISTORY Procedure Laterality Date HERNIA REPAIR W/MESH 04/12/2013 Ventral hernia w/ medium Ventralex patch ALLERGIES Patient has no known allergies. MEDICATIONS labetalol (TRANDATE) 200 mg tablet Take 1 tablet by mouth two times a day. amLODIPine (NORVASC) 10 mg tablet Take 1 tablet by mouth once daily. losartan-hydroCHLOROthiazide (HYZAAR) 100-25 mg per tablet Take 1 tablet by mouth once daily. triamcinolone acetonide (KENALOG) 0.1 % cream Apply 1 application to affected area three times a day. Apply sparingly to area for rash/itching. CPAP AutoPAP 10-20 cmH2O. Dx: ANNE FAMILY HISTORY Problem Relation Age of Onset Thyroid Mother Kidney Disease Father dialysis Diabetes Other Cousins, uncles Hypertension Father Social History Tobacco Use Smoking status: Never Smokeless tobacco: Never Vaping Use Vaping Use: Never used Substance Use Topics Alcohol use: No Drug use: No Review of Systems Constitutional: Positive for fever. HENT: Positive for congestion and sore throat. Negative for ear pain and nosebleeds. Respiratory: Positive for cough. Negative for shortness of breath and wheezing. Musculoskeletal: Negative for neck pain. Skin: Negative for itching and rash. Objective Blood pressure 138/84, pulse 106, temperature 37.9 C (100.2 F), resp. rate 18, weight (!) 163.3 kg (360 lb), SpO2 96%. 65 Physical Exam Constitutional: General: He is not in acute distress. Appearance: He is not toxic-appearing or diaphoretic. HENT: Head: Normocephalic and atraumatic. Right Ear: Hearing, tympanic membrane, ear canal and external ear normal. Left Ear: Hearing, tympanic membrane, ear canal and external ear normal. Nose: Nose normal. Mouth/Throat: Pharynx: Uvula midline. No pharyngeal swelling, oropharyngeal exudate, posterior oropharyngeal erythema or uvula swelling. Eyes: General: Lids are normal. No scleral icterus. Right eye: No discharge. Left eye: No discharge. Conjunctiva/sclera: Conjunctivae normal. Pupils: Pupils are equal, round, and reactive to light. Neck: Trachea: Trachea normal. Cardiovascular: Rate and Rhythm: Normal rate and regular rhythm. Heart sounds: Normal heart sounds. Pulmonary: Effort: Pulmonary effort is normal. Breath sounds: Normal breath sounds. Musculoskeletal: Cervical back: Normal range of motion and neck supple. Lymphadenopathy: Cervical: No cervical adenopathy. Right cervical: No superficial cervical adenopathy. Left cervical: No superficial cervical adenopathy. Skin: Findings: No rash. Neurological: Mental Status: He is alert and oriented to person, place, and time. ASSESSMENT/PLAN: 1. Influenza A - ICD9: 487.1, ICD10: J10.1 (primary diagnosis) -discussed expected course -discussed supportive care -discussed red flags and reasons for f/u -discussed contagiousness, reason/when close family members should f/u, and whom to avoid -f/u in 3-5 days if symptoms worsening Creatinine clearance calculated to be 84 - OSELTAMIVIR 75 MG CAPSULE 2. Influenza-like illness - ICD9: 487.1, ICD10: J11.1 - INFLUENZA A&B MOLECULAR (POC) - OSELTAMIVIR 75 MG CAPSULE Bentley Dias APRN.CNP documented in this encounter [facility] 08-07-2023 Miscellaneous Notes Formattin g of this note is different from the original. The following approved medication requests have been transmitted electronically. Requested Prescriptions Pending Prescriptions Disp Refills labetalol (TRANDATE) 200 mg tablet 180 tablet 3 Sig: Take 1 tablet by mouth two times a day. amLODIPine (NORVASC) 10 mg tablet 90 tablet 3 Sig: Take 1 tablet by mouth once daily. losartan-hydroCHLOROthiazide (HYZAAR) 100-25 mg per tablet 90 tablet 3 Sig: Take 1 tablet by mouth once daily. Irving Smith APRN.CNP Patient last visit with PCP 01/27/23 Follow up appointment scheduled 09/01/23 Suyapa Bee Ma documented in this encounter [facility] 06-10-2023 Note HNO ID: [id number] Author: Senia Land APRN.PRESSURE VESSEL INSPECTOR Service: ? Author Type: Nurse Practitioner Type: Progress Notes Filed: 06/10/2023 8:13 AM Note Text: Subjective HPI HPI Magnolia Henriquez is a 47 year old male who presents today for CC of insect bite on stomach that is itchy, and hard. He did not see the insect. He has not used any medications or treatment. He denies any fever, or redness. States it does feel a little smaller today BP 169/116 Pulse 72 Temp 36.2 ?C (97.1 ?F) Resp 18 Wt (!) 164.6 kg (362 lb 12.8 oz) SpO2 96% BMI 44.16 kg/m? BP recheck - 142/96. He did not take medications yesterday, he did this am Social History Tobacco Use Smoking status: Never Smokeless tobacco: Never Vaping Use Vaping Use: Never used Substance Use Topics Alcohol use: No Drug use: No PAST MEDICAL HISTORY Diagnosis Date Dysmetabolic syndrome X Hypertension Morbid obesity (HCC) ANNE (obstructive sleep apnea) on CPAP I have confirmed and edited as necessary, the [facility] Review of Systems Constitutional: Negative for chills and fever. Musculoskeletal: Negative for joint pain and myalgias. Skin: Positive for itching. Negative for rash. Site swelling, pruritic, no painful All other systems reviewed and are negative. Objective Physical Exam Vitals and nursing note reviewed. Pulmonary: Effort: Pulmonary effort is normal. Skin: General: Skin is warm and dry. Comments: Swelling, size of golfball, non tender, pruritic Neurological: Mental Status: He is alert and oriented to person, place, and time. Psychiatric: Mood and Affect: Affect normal. ASSESSMENT/PLAN: 1. Insect bite of abdominal wall, initial encounter - ICD9: 911.4, E906.4, ICD10: S30.861A, W57.XXXA Appears to be inflammatory Tylenol/ibuprofen prn Mupirocin to area as discussed Benadryl or zyrtec as needed for itching. If increasing redness or swelling start keflex as discussed. Patient will call Dr. Martino's office for recheck of BP Diagnosis and treatment plan were discussed and questions were answered to the patient's satisfaction. Pt acknowledged understanding of concepts and follow up plan. Specific signs and symptoms that would indicate the need for higher level of care were discussed in detail warranting prompt ER evaluation. Senia Land APRN.CNP [facility] 06-10-2023 Instructions Senia Land APRN.CNP - 06/10/2023 7:55 AM EDT Triamcinolone cream to area for itching Keep area clean and dry Site care-soap/water wash followed by antibacterial ointment 2-3 x a day Watch for signs of infection which are redness, swelling and pus like drainage - if worsening signs start keflex Cool compress to sting site as needed Benadryl or zyrtec as needed for itching. With blood pressure elevation, call Dr Martino's office and recheck BP in one week. * Seek medical care immediately, call 911, go to ER if you have chest pain, difficulty breathing, shortness of breath, inability to swallow. documented in this encounter [facility] 06-10-2023 History of Presen t illness Narrative Images from the original note were not included. Subjective HPI HPI Magnolia Henriquez is a 47 year old male who presents today for CC of insect bite on stomach that is itchy, and hard. He did not see the insect. He has not used any medications or treatment. He denies any fever, or redness. States it does feel a little smaller today BP 169/116 Pulse 72 Temp 36.2 C (97.1 F) Resp 18 Wt (!) 164.6 kg (362 lb 12.8 oz) SpO2 96% BMI 44.16 kg/m BP recheck - 142/96. He did not take medications yesterday, he did this am Social History Tobacco Use Smoking status: Never Smokeless tobacco: Never Vaping Use Vaping Use: Never used Substance Use Topics Alcohol use: No Drug use: No PAST MEDICAL HISTORY Diagnosis Date Dysmetabolic syndrome X Hypertension Morbid obesity (HCC) ANNE (obstructive sleep apnea) on CPAP I have confirmed and edited as necessary, the [facility] Review of Systems Constitutional: Negative for chills and fever. Musculoskeletal: Negative for joint pain and myalgias. Skin: Positive for itching. Negative for rash. Site swelling, pruritic, no painful All other systems reviewed and are negative. Objective Physical Exam Vitals and nursing note reviewed. Pulmonary: Effort: Pulmonary effort is normal. Skin: General: Skin is warm and dry. Comments: Swelling, size of golfball, non tender, pruritic Neurological: Mental Status: He is alert and oriented to person, place, and time. Psychiatric: Mood and Affect: Affect normal. ASSESSMENT/PLAN: 1. Insect bite of abdominal wall, initial encounter - ICD9: 911.4, E906.4, ICD10: S30.861A, W57.XXXA Appears to be inflammatory Tylenol/ibuprofen prn Mupirocin to area as discussed Benadryl or zyrtec as needed for itching. If increasing redness or swelling start keflex as discussed. Patient will call Dr. Martino's office for recheck of BP Diagnosis and treatment plan were discussed and questions were answered to the patient's satisfaction. Pt acknowledged understanding of concepts and follow up plan. Specific signs and symptoms that would indicate the need for higher level of care were discussed in detail warranting prompt ER evaluation. Senia Land APRN.GAURANG documented in this encounter [facility] 01-27-2023 Note HNO ID: [id number] Author: Sonido Knutson MD Service: ? Author Type: Physician Type: Progress Notes Filed: 01/27/2023 9:17 AM Note Text: Chief Complaint Patient presents with: F/U 6 Month HPI Magnolia Henriquez is a 47 year old male who presents here today for a 6 month follow up. Pt here today for a 6 month follow up. Busy working and playing with his 10 year old son. GI/Uro - Denies any stomach, bowel or urinary issues. In the past has not been interested in Colonoscopy testing. CKD - Follows with Dr. Gunner Higgins twice yearly. Stable, monitoring through routine labs, overall satisfied with his levels. Labs recently done in November. HTN - Denies checking his BP at home (has machine) or having symptoms of chest pain, sob or dizziness. On current regimen of Norvasc 10 mg once daily. Hyzaar 100-25 mg daily and Labetalol 100 mg 2 tabs po bid. Denies any exercise other then walking. ANNE - Uses CPAP 10-20 cm of water. Feels he does well with this.Tolerates well. Does note that his supplies are getting outdate and may need a new one. Has had his for over 5 years roughly. Receives supplies through [employer]. Continue to work on diet and watching diet to lose weight. HM - Declines Hep C/HIV screening. Declines Colorectal Screening at this time. Declines feeling down, depressed or hopeless. Depression screening tool completed and reviewed. Based on score and interview, patient is not at risk for depression. Screening tool discussed with patient, and I recommended no further intervention at this time Past medical history, appointments, medications, allergies reviewed. Previous Medical History PAST MEDICAL HISTORY Diagnosis Date Dysmetabolic syndrome X Hypertension Morbid obesity (HCC) ANNE (obstructive sleep apnea) on CPAP Previous Surgical History PAST SURGICAL HISTORY Procedure Laterality Date HERNIA REPAIR W/MESH 04/12/2013 Ventral hernia w/ medium Ventralex patch Family History FAMILY HISTORY Problem Relation Age of Onset Thyroid Mother Kidney Disease Father dialysis Diabetes Other Cousins, uncles Hypertension Father Patient Allergies ALLERGIES No Known Allergies Current Medications Current Outpatient Medications on File Prior to Visit Medication Sig labetalol (TRANDATE) 200 mg tablet Take 1 tablet by mouth twice daily. amLODIPine (NORVASC) 10 mg tablet Take 1 tablet by mouth once daily. losartan-hydroCHLOROthiazide (HYZAAR) 100-25 mg per tablet Take 1 tablet by mouth once daily. CPAP Pressure change: autoPAP 10-20 cmH2O. Dx: ANNE No current facility-administered medications on file prior to visit. Social History Social History Tobacco Use Smoking status: Never Smokeless tobacco: Never Vaping Use Vaping Use: Never used Substance Use Topics Alcohol use: No Drug use: No EXAM: BP 134/86 (BP Site: Left Arm, BP Position: Sitting, BP Cuff Size: Large Adult) Pulse 66 Resp 16 Wt (!) 164.6 kg (362 lb 12.8 oz) BMI 44.16 kg/m? General Appearance: Well appearing, alert, in no acute distress, well-hydrated, well nourished. and Obese. Lungs: Lungs clear to auscultation. No wheezing, rhonchi, rales.. Heart: RRR without murmur, gallop, or rubs. No ectopy. Health Maintenance List HEPATITIS B(1 of 3 - 3-dose series) Never done HEPATITIS C SCREENING Never done HIV SCREENING Never done BP CONTROLLED (<130/80) Never done COLORECTAL CANCER SCREENING Never done DTAP,TDAP,TD(3 - Td or Tdap) due on 04/29/2022 DEPRESSION ASSESSMENT due on 09/07/2022 SERUM CREATININE due on 03/29/2023 HEMOGLOBIN/HEMATOCRIT due on 03/29/2023 ANNUAL PCP TEAM CHRONIC DISEASE VISIT due on 07/22/2023 LIPID SCREEN due on 11/16/2023 DIABETES SCREEN due on 03/29/2025 INFLUENZA Completed COVID-19 VACCINE Completed Data reviewed External labs 11/27: BUN/Cr 20/.32, Glucose 112/ ASSESSMENT/PLAN: 1. Essential hypertension - ICD9: 401.9, ICD10: I10 (primary diagnosis) - suboptimal control - Continue current medication(s) - Recommended regular aerobic exercise. - Recommend home blood pressure monitoring, to bring results in on next visit - Goal of BP <130/80 2. Stage 3 chronic kidney disease, unspecified whether stage 3a or 3b CKD (HCC) - ICD9: 585.3, ICD10: N18.30 - Overall stable - Cont f/u with Nephrology w/routine labs - Continue current medication regimen. 3. ANNE (obstructive sleep apnea) AHI 110 - ICD9: 327.23, ICD10: G47.33 - Rx sent to [facility] - CPAP 6 mo f/u. Labs monitored through Nephrology. I agree with the Chief Complaint, ROS, and Past Histories independently gathered by the clinical vp software support and the remaining scribed note accurately describes my personal service to the patient. Medical Decision Making: Problems: Moderate: 2+ stable chronic illnesses Risk: Moderate: Drug management Medical Decision Making Level: 4 - Moderate Sonido Knutson MD The documentation for this note was comp (more content not included)... [facility] 07-22-2022 History of Presen t illness Narrative Chief Complaint Patient presents with: F/U 6 Month HPI Magnolia Henriquez is a 46 year old male who presents here today for a 6 month follow up. Pt here today for a delayed 6 month f/u, due to no showing his OV in April. 6 minutes late to visit today. GI/Uro - Denies any stomach, bowel or urinary issues. Not interested in Colonoscopy testing at this time. CKD - Follows with NephDr. Gunner nelson twice yearly. Stable, monitoring through routine labs. 03/29/22 Cr 1.43. HTN - Denies checking his BP at home (has machine) or having symptoms of chest pain, sob or dizziness. On current regimen of Norvasc 10 mg once daily. Hyzaar 100-25 mg daily and Labetalol 100 mg 2 tabs po bid. Denies any exercise other then walking. ANNE - Uses AutoPap 10-20 cm of water. Feels he does well with this.Tolerates well. Receives supplies through [employer]. HM - Agrees to flu shot. Agrees to Covid vaccine today. Declines depression symptoms. Not interested in Colon screening at this time. Past medical history, appointments, medications, allergies reviewed. Previous Medical History PAST MEDICAL HISTORY Diagnosis Date Dysmetabolic syndrome X Hypertension Morbid obesity (HCC) ANNE (obstructive sleep apnea) on CPAP Previous Surgical History PAST SURGICAL HISTORY Procedure Laterality Date HERNIA REPAIR W/MESH 04/12/2013 Ventral hernia w/ medium Ventralex patch Family History FAMILY HISTORY Problem Relation Age of Onset Thyroid Mother Kidney Disease Father dialysis Diabetes Other Cousins, uncles Hypertension Father Patient Allergies ALLERGIES No Known Allergies Current Medications Current Outpatient Medications on File Prior to Visit Medication Sig labetalol (TRANDATE) 100 mg tablet Take 2 tablets by mouth twice daily. amLODIPine (NORVASC) 10 mg tablet Take 1 tablet by mouth once daily. losartan-hydroCHLOROthiazide (HYZAAR) 100-25 mg per tablet Take 1 tablet by mouth once daily. CPAP Pressure change: autoPAP 10-20 cmH2O. Dx: ANNE No current facility-administered medications on file prior to visit. Social History Social History Tobacco Use Smoking status: Never Smokeless tobacco: Never Vaping Use Vaping Use: Never used Substance Use Topics Alcohol use: No Drug use: No EXAM: BP 124/82 (BP Site: Left Arm, BP Position: Sitting, BP Cuff Size: Large Adult) Pulse 68 Resp 16 Wt (!) 166.3 kg (366 lb 9.6 oz) BMI 44.62 kg/m General Appearance: Well appearing, alert, in no acute distress, well-hydrated, well nourished and Obese. Lungs: Lungs clear to auscultation. No wheezing, rhonchi, rales. Heart: RRR without murmur, gallop, or rubs. No ectopy. Health Maintenance List HEPATITIS B(1 of 3 - 3-dose series) Never done BP CONTROLLED (<130/80) Never done HEMOGLOBIN/HEMATOCRIT due on 03/19/2014 COLORECTAL CANCER SCREENING Never done SERUM CREATININE due on 10/08/2020 COVID-19 VACCINE(3 - Booster for Pfizer series) due on 02/27/2021 DEPRESSION ASSESSMENT Never done DTAP,TDAP,TD(3 - Td or Tdap) due on 04/29/2022 INFLUENZA(1) due on 05/08/2022 HEPATITIS C SCREENING due on 10/15/2022 HIV SCREENING due on 10/15/2022 DIABETES SCREEN due on 10/08/2022 ANNUAL PCP TEAM CHRONIC DISEASE VISIT due on 10/15/2022 LIPID SCREEN due on 11/16/2023 Data reviewed External labs ASSESSMENT/PLAN: 1. Essential hypertension - ICD9: 401.9, ICD10: I10 (primary diagnosis) - good control - Continue current medication(s), change to Labetolol 200 mg 1 tab bid. - Recommended regular aerobic exercise. - Recommend home blood pressure monitoring, to bring results in on next visit - Goal of BP <130/80 - LABETALOL 200 MG TABLET 2. ANNE (obstructive sleep apnea) AHI 110 - ICD9: 327.23, ICD10: G47.33 - Stable 3. Stage 3 chronic kidney disease, unspecified whether stage 3a or 3b CKD (HCC) - ICD9: 585.3, ICD10: N18.30 - Cont f/u with Nephro 4. Need for influenza vaccination - ICD9: V04.81, ICD10: Z23 - INFLUENZA VACCINE QUADRIVALENT 6 MO - 64 YRS IM 5. Need for COVID-19 vaccine - ICD9: V04.89, ICD10: Z23 - PFIZER-BIONTECH COVID-19 BIVALENT BOOSTER VACCINE, AGE 12+ YR 6 mo f/u I agree with the Chief Complaint, ROS, and Past Histories independently gathered by the clinical vp software support and the remaining scribed note accurately describes my personal service to the patient. Medical Decision Making: Problems: Moderate: 2+ stable chronic illnesses Risk: Moderate: Drug management Medical Decision Making Level: 4 - Moderate Sonido D Elderbrock, MD The documentation for this note was completed by Liset Whelan Ma acting as scribe for Sonido Knutson MD. July 22, 2022 9:05 AM. Liset Whelan Ma documented in this encounter [facility] documented as of this encounter (statuses as of 07/24/2022) [facility]09-16-2009 History of Past illness Narrative* Problem Noted Date Diagnosed Date Resolved Date Gastritis 05/23/2009 09/14/2017 Obesity, unspecified 06/30/2007 010 Unspecified urinary incontinence 06/30/2007 09/14/2017 documented as of this encounter (statuses as of 06/11/2023) [facility]09-16[facility]2009 History of Past illness Narrative* Problem Noted Date Diagnosed Date Resolved Date Gastritis 05/23/2009 09/14/2017 Obesity, unspecified 06/30/2007 010 Unspecified urinary incontinence 06/30/2007 09/14/2017 documented as of this encounter (statuses as of 08/07/2023) [facility] History of Past illness Narrative* Problem Noted Date Diagnosed Date Resolved Date Gastritis 05/23/2009 09/14/2017 Obesity, unspecified 06/30/2007 010 Unspecified urinary incontinence 06/30/2007 09/14/2017 documented as of this encounter (statuses as of 08/30/2023) [facility] History of Past illness Narrative* Problem Noted Date Diagnosed Date Resolved Date Gastritis 05/23/2009 09/14/2017 Obesity, unspecified 06/30/2007 010 Unspecified urinary incontinence 06/30/2007 09/14/2017 documented as of this encounter (statuses as of 11/10/2023) [facility] Essential hypertension- Primary Unspecified essential hypertension ANNE (obstructive sleep apnea) AHI 110 Obstructive sleep apnea (adult) (pediatric) Stage 3 chronic kidney disease, unspecified whether stage 3a or 3b CKD (HCC) Need for influenza vaccination Need for prophylactic vaccination and inoculation against influenza Need for COVID-19 vaccine [facility] Diagnosis Insect bite of abdominal wall, initial encounter- Primary [facility] Diagnosis Essential hypertension Unspecified essential hypertension documented in this encounter [facility] note* Diagnosis Influenza A- Primary Influenza with other respiratory manifestations Influenza-like illness Influenza with other respiratory manifestations documented in this encounter [facility] note* Diagnosis Screening for colon cancer- Primary Special screening for malignant neoplasms, colon Special screening for malignant neoplasms, colon documented in this encounter [facility] for referral (narrative)* Outpatient Procedure (Routine) - Closed Specialty Diagnoses / Procedures Referred By Zoey wylie Referred To Contact [facility] Diagnoses Special screening for malignant neoplasms, colon Procedures COLONOSCOPY SCREENING COLONOSCOPY FLX DX W/COLLJ SPEC WHEN Sonido Dominique MD [address] [place] [address] [address] Referral ID Status Reason Start Date Expiration Date V isits Requested Visits Authorized [id number] Closed Auto-Generate d Referral 10/06/2023 10/06/2024 1 1 [facility] for visit Narrative* Outpatient Procedure (Routine) - Closed Specialty Diagnoses / Procedures Referred By Zoey wylie Referred To Contact [facility] Diagnoses Special screening for malignant neoplasms, colon Procedures COLONOSCOPY SCREENING COLONOSCOPY FLX DX W/COLLJ SPEC WHEN Sonido Dominique MD [address] [place] [address] [address] Referral ID Status Reason Start Date Expiration Date V isits Requested Visits Authorized [id number] Closed Auto-Generate d Referral 10/06/2023 10/06/2024 1 1 [facility] Summary Purpose Family History No Family History Records Found Advance Directives No Advanced Directives Records Found Additional Source Comments Source Comments (unrecognize d section and content) In the event this informatio n is protected by the Federal Confidentiality of Alcohol and Drug Abuse Patient Records regulations: The Federal rules restrict any use of the information to criminally investigate or prosecute any alcohol or drug abuse patient.[facility] the event this information is protected by the Federal Confidentiality of Alcohol and Drug Abuse Patient Records regulations: The Federal rules restrict any use of the information to criminally investigate or prosecute any alcohol or drug abuse patient.[facility] the event this information is protected by the Federal Confidentiality of Alcohol and Drug Abuse Patient Records regulations: The Federal rules restrict any use of the information to criminally investigate or prosecute any alcohol or drug abuse patient.[facility] the event this information is protected by the Federal Confidentiality of Alcohol and Drug Abuse Patient Records regulations: The Federal rules restrict any use of the information to criminally investigate or prosecute any alcohol or drug abuse patient.[facility] the event this information is protected by the Federal Confidentiality of Alcohol and Drug Abuse Patient Records regulations: The Federal rules restrict any use of the information to criminally investigate or prosecute any alcohol or drug abuse patient.[facility] Reason for Visit (unrecogniz ed section and content) Reason Comments Insect Bite Abdomen x2 days Reason Onset Date Comments Refill Request 08/07/2023 Reason Comments Chest Congestion cough and fatigue x 2 days Care Teams (unrecognized sec tion and content) Blade Sharpener Relationship Specialty Start Date End Date Sonido Knutson MD [address] [place], [place] [id number] PCP - General Family Medicine 05/22/15 Blade Sharpener Relationship Specialty Start Date End Date Sonido Knutson MD [address] [place], [place] [id number] PCP - General Family Medicine 05/22/15 Blade Sharpener Relationship Specialty Start Date End Date Sonido Knutson MD [address] [place], [place] [id number] PCP - General Family Medicine 05/22/15 Inactive Administered Medications - up to 3 most recent administrations Administered Medications (un recognized section and content) (unrecognized sect ion and content) No Status Records Found INFORMATION SOURCE (unrecogn ized section and content) FOR RECORDS PERTAINING TO PATIENTS WHO ARE OR HAVE BEEN ENROLLED IN A CHEMICAL DEPENDENCY/SUBSTANCEABUSE PROGRAM, SOME INFORMATION MAY BE OMITTED. This clinical summary was aggregated from multiple sources. Caution should be exercised in using it in the provision of clinical care. This summary normalizes information from multiple sources, and as a consequence, information in this document may materially change the coding, format and clinical context of patient data. In addition, data may be omitted in some cases. CLINICAL DECISIONS SHOULD BE BASED ON THE PRIMARY CLINICAL RECORDS. [facility] [employer] [facility]. provides no warranty or guarantee of the accuracy or completeness of information in this document.
[2023-11-21 11:30] LABS: Albumin, Serum 3.6 g/dL (3.2-5.0); BUN 18 mg/dL (7-18); BUN/Creat Ratio 12.6 RATIO (10-20); Chloride 108 mmol/L (98-107); Creatinine, Serum 1.43 mg/dL (0.70-1.30); EST Glomerular Filtration Rate 56 mL/min (>60); Est Glom Filt Rate - Afr Amer 68 mL/min (>60); Glucose 110 mg/dL (74-106); Phosphorus 2.5 mg/dL (2.5-4.9); Potassium 4.2 mmol/L (3.5-5.1); Sodium Level 140 mmol/L (136-145)
== END | disposition home or self-care (01) ==
PROVIDERS: PCP Family Medicine; Referring Provider Internal Medicine Nephrology; Visit Provider Internal Medicine Nephrology
DX: N18.30 Chronic kidney disease, stage 3 unspecified (principal)
CPT/HCPCS: 36415; 80069

== ENCOUNTER → 2023-11-24 | Outpatient (CLI) | payer OTHER, SELFPAY ==
[2023-11-24 11:35] LABS: Uric Acid 9.1 mg/dL (3.5-7.2)
== END | disposition home or self-care (01) ==
LOC: POLAB3 10:39
PROVIDERS: PCP Family Medicine; Visit Provider Internal Medicine Nephrology
DX: M10.9 Gout, unspecified (principal)
CPT/HCPCS: 36415; 84550

== ENCOUNTER → 2024-11-08 | Outpatient (CLI) | payer OTHER, SELFPAY ==
[2024-11-08 09:39] LABS: Albumin, Serum 4.1 g/dL (3.5-5.0); Anion Gap 12 (5-15); BUN 20 mg/dL (4-19); BUN/Creat Ratio 16.2 RATIO (10-20); Calcium,Total 9.3 mg/dL (7.6-11.0); Carbon Dioxide 25.1 mmol/L (21.0-32.0); Chloride 104 mmol/L (98-108); Creatinine, Serum 1.25 mg/dL (0.70-1.20); EST Glomerular Filtration Rate 70 (>60); Glucose 123 mg/dL (70-99); Phosphorus 3.2 mg/dL (2.7-4.5); Sodium Level 141 mmol/L (133-145)
== END | disposition home or self-care (01) ==
LOC: LAB 08:13
PROVIDERS: PCP Family Medicine; Referring Provider Internal Medicine Nephrology; Visit Provider Internal Medicine Nephrology
DX: N18.30 Chronic kidney disease, stage 3 unspecified (principal)
CPT/HCPCS: 36415; 80069

== ENCOUNTER 2025-03-10 16:11 | Emergency (ER) | payer OTHER, SELFPAY ==
[2025-03-10 16:11] VITALS: BP 206/121; PULSE 85; RESP 20; TEMP 36.8; O2SAT 97; BMI 44.0
--- OUTSIDE RECORDS SUMMARY | 2025-03-10 16:40 | XMS RPT_ITS | CCD ---
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 Diabetes Association (ADA) provides guidance for cutoff values for fasting glucose and random glucose. The ADA defines fasting as no caloric intake for at least 8 hours. Fasting plasma glucose results between 100 to 125 mg/dL indicate increased risk for diabetes (prediabetes). Fasting plasma glucose results greater than or equal to 126 mg/dL meet the criteria for diagnosis of diabetes. In the absence of unequivocal hyperglycemia, results should be confirmed by repeat testing. In a patient with classic symptoms of hyperglycemia or hyperglycemic crisis, random plasma glucose results greater than or equal to 200 mg/dL meet the criteria for diagnosis of diabetes. Reference: Standards of Medical Care in Diabetes 2016, [place] Diabetes Association. Diabetes Care. 2016.39(Suppl 1). Performed By: #### 2 4331-1, 3084-1, 34790-9 #### [facility] CLIA [id number] [address] [place], [place] [address] [place] Potassium [Moles/Vol] 3.8 mmol/L Normal 3.7-5.1 [facility] Comment on above: Order Comment: Speci men Type: BLOOD SPECIMEN Ordering Facility: [facility] Address: [address] [place], [place] [address] Performed By: #### 2 4331-1, 308-, #### [facility] CLIA [id number] [address] [place] [address] [place] Protein [Mass/Vol] 7.5 g/dL Normal 6.3-8.0 [facility] Comment on above: Order Comment: Speci men Type: BLOOD SPECIMEN Ordering Facility: [facility] Address: [address] [place] [address] Performed By: #### 2 4331-1, 3083-09, #### [facility] CLIA [id number] [address] [place] [address] [place] Sodium [Moles/Vol] 142 mmol/L Normal 136-144 [facility] Comment on above: Order Comment: Speci men Type: BLOOD SPECIMEN Ordering Facility: [facility] Address: [address] [place], [place] [address] Performed By: #### 2 4331-1, 3083-09, #### [facility] CLIA [id number] [address] [place], [place] [address] [place] Urea nitrogen [Mass/Vol] 16 mg/dL Normal 9-24 [facility] Comment on above: Order Comment: Speci men Type: BLOOD SPECIMEN Ordering Facility: [facility] Address: [address] [place] [address] Performed By: #### 2 4331-1, 3083-09, #### [facility] CLIA [id number] [address] [place] [address] [place] Lipid 1996 panelon 5 Cholesterol [Mass/Vol] 162 mg/dL NINF - 200 mg/dL [facility] Comment on above: <200 mg/dL, Desirabl e 200-239 mg/dL, Borderline high >239 mg/dL, High Cholesterol in HDL [Mass/Vol] 42 mg/dL 39 - PINF mg/dL [facility] Comment on above: 40-59 mg/dL, Accepta ble >59 mg/dL, High: Negative risk factor for coronary heart disease <40 mg/dL, Low: Positive risk factor for coronary heart disease Cholesterol in LDL [Mass/Vol] 106 mg/dL High NINF - 100 mg/dL [facility] Comment on above: <100 mg/dL, Optimal 100-129 mg/dL, Near optimal/above optimal 130-159 mg/dL, Borderline high 160-189 mg/dL, High >189 mg/dL, Very high Secondary prevention optimal LDL Cholesterol levels are recommended to be <70 mg/dL LDL cholesterol is calculated using the Mai-NIH equation. Cholesterol in LDL/Cholesterol in HDL [Mass ratio] 2.52 {ratio} NINF - 2.54 [facility] Comment on above: Reference: 1. National Cholesterol Education Program ATP III Guideline At-A-Glance Quick Desk Reference: National Heart, Lung, and Blood Nenzel. National Institutes of Health. 2001: NIH Publication No. 01-3305. 2. An International Atherosclerosis Society position paper: global recommendations for the management of dyslipidemia: executive summary, Atherosclerosis. 2014: 232(2):410-413. Cholesterol in VLDL [Mass/Vol] 12 mg/dL NINF - 30 mg/dL [facility] Cholesterol non HDL [Mass/Vol] 120 mg/dL NINF - 130 mg/dL [facility] Comment on above: <130 mg/dL, Optimal 130-159 mg/dL, Near optimal/above optimal 160-189 mg/dL, Borderline high 190-219 mg/dL, High >219 mg/dL, Very high Secondary prevention optimal non HDL Cholesterol levels are recommended to be <100 mg/dL Cholesterol.total/Claudia sterol in HDL [Mass ratio] 3.86 {ratio} NINF - 5.10 [facility] Fasting Time 12 hrs [facility] Triglyceride [Mass/Vol] 75 mg/dL NINF - 150 mg/dL [facility] Comment on above: <150 mg/dL, Normal 150-199 mg/dL, Borderline high 200-499 mg/dL, High >499 mg/dL, Very high Cholesterol [Mass/Vol] 162 mg/dL Normal <200 [facility] Comment on above: Order Comment: Harveyi men Type: BLOOD SPECIMEN Ordering Facility: [facility] Address: [address] [place] [address] Result Comment: <200 mg/dL, Desirable 200-239 mg/dL, Borderline high >239 mg/dL, High Performed By: #### 2 4331-1, 308-1, 87898-9 #### [facility] CLIA [id number] [address] [place] [address] [place] Cholesterol in HDL [Mass/Vol] 42 mg/dL Normal >39 [facility] Comment on above: Order Comment: Silvina tenorio Type: BLOOD SPECIMEN Ordering Facility: [facility] Address: [address] [place] [address] Result Comment: 40-5 9 mg/dL, Acceptable >59 mg/dL, High: Negative risk factor for coronary heart disease <40 mg/dL, Low: Positive risk factor for coronary heart disease Performed By: #### 2 4331-1, 3083-09, #### [facility] CLIA [id number] [address] [place] [address] [place] Cholesterol in LDL [Mass/Vol] 106 mg/dL High <100 [facility] Comment on above: Order Comment: Silvina coby Type: BLOOD SPECIMEN Ordering Facility: [facility] Address: [address] [place] [address] Result Comment: <100 mg/dL, Optimal 100-129 mg/dL, Near optimal/above optimal 130-159 mg/dL, Borderline high 160-189 mg/dL, High >189 mg/dL, Very high Secondary prevention optimal LDL Cholesterol levels are recommended to be <70 mg/dL LDL cholesterol is calculated using the Mai-NIH equation. Performed By: #### 2 4331-1, 3084-1, 68816-5 #### [facility] CLIA [id number] [address] [place], [place] [address] [place] Cholesterol in LDL/Cholesterol in HDL [Mass ratio] 2.52 {ratio} Normal <2.54 [facility] Comment on above: Order Comment: Silvina tenorio Type: BLOOD SPECIMEN Ordering Facility: [facility] Address: [address] [place] [address] Result Comment: Oscar orellana: 1. National Cholesterol Education Program ATP III Guideline At-A-Glance Quick Desk Reference: National Heart, Lung, and Blood Nenzel. National Institutes of Health. 2001: NIH Publication No. 01-3305. 2. An International Atherosclerosis Society position paper: global recommendations for the management of dyslipidemia: executive summary, Atherosclerosis. 2014: 232(2):410-413. Performed By: #### 2 4331-1, 3083-, #### [facility] CLIA [id number] [address] [place] [address] [place] Cholesterol in VLDL [Mass/Vol] 12 mg/dL Normal <30 [facility] Comment on above: Order Comment: Silvina tenorio Type: BLOOD SPECIMEN Ordering Facility: [facility] Address: [address] [place] [address] Performed By: #### 2 4331-1, 3083-09, #### [facility] CLIA [id number] [address] [place] [address] STATES [facility] Cholesterol non HDL [Mass/Vol] 120 mg/dL Normal <130 [facility] Comment on above: Order Comment: Silvina tenorio Type: BLOOD SPECIMEN Ordering Facility: [facility] Address: [address] [place] [address] Result Comment: <130 mg/dL, Optimal 130-159 mg/dL, Near optimal/above optimal 160-189 mg/dL, Borderline high 190-219 mg/dL, High >219 mg/dL, Very high Secondary prevention optimal non HDL Cholesterol levels are recommended to be <100 mg/dL Performed By: #### 2 4331-1, 308-, 28024-7 #### [facility] CLIA [id number] [address] [place] [address] [place] Cholesterol.total/Claudia sterol in HDL [Mass ratio] 3.86 {ratio} Normal <5.10 [facility] Comment on above: Order Comment: Speci men Type: BLOOD SPECIMEN Ordering Facility: [facility] Address: [address] [place] [address] Performed By: #### 2 4331-1, 3084-1, 06203-2 #### [facility] CLIA [id number] [address] [place] [address] [place] FASTING TIME 12 hrs Normal [facility] Comment on above: Order Comment: Speci men Type: BLOOD SPECIMEN Ordering Facility: [facility] Address: [address] [place] [address] Performed By: #### 2 4331-1, 3084-1, 82750-7 #### [facility] CLIA [id number] [address] [place] [address] [place] Triglyceride [Mass/Vol] 75 mg/dL Normal <150 [facility] Comment on above: Order Comment: Speci men Type: BLOOD SPECIMEN Ordering Facility: [facility] Address: [address] [place] [address] Result Comment: <150 mg/dL, Normal 150-199 mg/dL, Borderline high 200-499 mg/dL, High >499 mg/dL, Very high Performed By: #### 2 4331-1, 3084-1, 39067-6 #### [facility] CLIA [id number] [address] [place] [address] [place] No Panel Informationon 02-14 Interpretation and review of laboratory results Abnormal [facility] URIC ACIDon 02-14-2025 Urate [Mass/Vol] 8.9 mg/dL High 4.0 - 8.1 mg/dL [facility] Urate SerPl-mCncon Urate [Mass/Vol] 8.9 mg/dL High 4.0-8.1 [facility] Comment on above: Order Comment: Speci men Type: BLOOD SPECIMEN Ordering Facility: [facility] Address: [address] [place] [address] Performed By: #### 2 4331-1, 3084-1, 84882-9 #### [facility] CLIA [id number] [address] [place] [address] [place] [address] [place] [address] [facility] Anion gap in Serum or Plasma Ordered By: Leola Martino on 11-08-2024 Anion gap [Moles/Vol] 12 mmol/L 5-15 [facility] BUN/creatinine ratioOrdered By: Leola Martino on 11-08-2024 Urea nitrogen/Creatinine [Mass ratio] 16.2 mg/mg 10-20 [facility] Carbon dioxide, total [Moles /volume] in Central venous bloodOrdered By: Leola Martino on 11-08-2024 CO2 [Moles/Vol] 25.1 mmol/L 21.0-32.0 [facility] Chloride assayOrdered By: Martha Martino on 11-08-2024 Chloride [Moles/Vol] 104 mmol/L 98-108 [facility] GFR/1.73 sq M.predicted rae g non-blacks MDRD (S/P/Bld) [Vol rate/Area]Ordered By: Leola Martino on 11-08-2024 Estimated GFR (MDRD) Non-Af Amer 70 >60 [facility] Comment on above: mL/min/1.73m2 CKD-EP I Creatinine Equation (2020) Potassium (Unsp spec) [Mass/ Vol]Ordered By: Loela Martino on 11-08-2024 Potassium [Moles/Vol] 4.0 mmol/L 3.3-5.1 [facility] Renal Profileon 11-08-2024 Albumin [Mass/Vol] 4.1 g/dL Normal 3.5-5.0 [facility] Comment on above: Performed By: #### L 500.3600 #### [facility] [address] [place], [address] BUN/CRE 16.2 RATIO Normal 10-20 [facility] Comment on above: Performed By: #### L 500.3600 #### [facility] [address] [place], [address] Calcium [Mass/Vol] 9.3 mg/dL Normal 7.6-11.0 [facility] Comment on above: Performed By: #### L 500.3600 #### [facility] [address] [place], [address] Chloride [Moles/Vol] 104 mmol/L Normal 98-108 [facility] Comment on above: Performed By: #### L 500.3600 #### [facility] [address] [place], [address] CO2 [Moles/Vol] 25.1 mmol/L Normal 21.0-32.0 [facility] Comment on above: Performed By: #### L 500.3600 #### [facility] [address] [place], [address] Creatinine [Mass/Vol] 1.25 mg/dL High 0.70-1.20 [facility] Comment on above: Performed By: #### L 500.3600 #### [facility] [address] [place], [address] GAP 12 Normal 5-15 [facility] Comment on above: Performed By: #### L 500.3600 #### [facility] [address] [place], [address] GFR/1.73 sq M.predicted among non-blacks MDRD (S/P/Bld) [Vol rate/Area] 70 mL/min/{1.73_m2} Normal >60 [facility] Comment on above: Result Comment: mL/m in/1.73m2 CKD-EPI Creatinine Equation (2020) Performed By: #### L 500.3600 #### [facility] [address] [place], [address] Glucose [Mass/Vol] 123 mg/dL High 70-99 [facility] Comment on above: Performed By: #### L 500.3600 #### [facility] [address] [place], [address] Phosphate [Mass/Vol] 3.2 mg/dL Normal 2.7-4.5 [facility] Comment on above: Performed By: #### L 500.3600 #### [facility] [address] [place], [address] Potassium [Moles/Vol] 4.0 mmol/L Normal 3.3-5.1 [facility] Comment on above: Performed By: #### L 500.3600 #### [facility] [address] [place], [address] Sodium [Moles/Vol] 141 mmol/L Normal 133-145 [facility] Comment on above: Performed By: #### L 500.3600 #### [facility] [address] [place], [address] Urea nitrogen [Mass/Vol] 20 mg/dL High 4-19 [facility] Comment on above: Performed By: #### L 500.3600 #### [facility] [address] [place], [address] Serum creatinine measurement (mass/volume)Ordered By: Leola Martino on 11-08-2024 Creatinine [Mass/Vol] 1.25 mg/dL High 0.70-1.20 [facility] Serum glucose measurement (m ass/volume)Ordered By: Leola Martino on 11-08-2024 Glucose [Mass/Vol] 123 mg/dL High 70-99 [facility] Serum or plasma albumin raegan urement (mass/volume)Ordered By: Leola Martino on 11-08-2024 Albumin [Mass/Vol] 4.1 g/dL 3.5-5.0 [facility] Serum or plasma calcium raegan urement (mass/volume)Ordered By: Leola Martino on 11-08-2024 Calcium [Mass/Vol] 9.3 mg/dL 7.6-11.0 [facility] Serum or plasma urea nitroge n measurement (mass/volume)Ordered By: Leola Martino on 11-08-2024 Urea nitrogen [Mass/Vol] 20 mg/dL High 4-19 [facility] Serum phosphorus measurement Ordered By: Leola Martino on 11-08-2024 Phosphorus Level 3.2 mg/dL 2.7-4.5 [facility] Sodium levelOrdered By: Libby Martino on 11-08-2024 Sodium [Moles/Vol] 141 mmol/L 133-145 [facility] CNOVon 08-16-2024 CNOV Office Visit (FAMPWS) BEATRIZCHRYSTAL ([id number]) 1975 M Date Time Provider Department 08/16/24 8:40 AM SONIDO KNUTSON During your visit today, we recorded the following information about you: Pulse Respiration Blood pressure Weight 78/minute 16/minute 138/94 169.4 kg Sonido Knutson MD 08/16/2024 10:37 AM Signed Chief Complaint Patient presents with: Follow Up HPI Magnolia Henderson is a 48 year old male who presents here today for medication follow up. Pt here today for a follow up visit. Overdue for a 6 month follow up. Son is keeping him busy, currently 12 years old, in basketball. GI/Uro - No bowel, Gi, or urinary issues. Gets up 1-2 x per night to urinate. Had Colonoscopy completed on 11/09/23, path showed tubular adenoma. HTN: Does not monitor his blood pressure at home. Denies any chest pains, dizziness, or SOB. Taking Hyzaar 100-25 mg daily and Labetalol 200 mg 1 pill BID. CKD - Follows with Nephrology, Dr. Martino every 6 months with routine labs ordered to monitor kidneys. Has an upcoming appt soon. Diet/Exercise - Low LDL on previous lipid panel. Tries to watch his diet by no longer drinking pop, drinking mostly water or some sweet tea, a lot of fruits and vegetables, chicken and avoiding fast foods. Has a son that keeps him active. Was previously walking when the weather was warmer, hasn't been doing this as much with the colder weather. ANNE: Uses CPAP at 10-20 cm water. Hasn't been using this as much due to his mask being broken. Is getting new supplies for this. Receives supplies through [employer]. Feels this is working well for him, when he does use his CPAP. Was seen in Jun at for gout of left ankle. Declined medication at time of visit but then follow day called in requesting tx. Was given 9 day taper of Prednisone, which significantly helped him and resolved the issues. Pt states that generally it effects his right big toe. HM - Declines Hep C/HIV screening. Agreeable to Flu and Covid vaccine. Past medical history, appointments, medications, allergies reviewed. [...] Take 1 tablet by mouth once daily. losartan-hydroCHLORO thiazide (HYZAAR) 100-25 mg per tablet Take 1 tablet by mouth once daily. triamcinolone acetonide (KENALOG) 0.1 % cream Apply 1 application to affected area three times a day. Apply sparingly to area for rash/itching. CPAP AutoPAP 10-20 cmH2O. Dx: ANNE No current facility-administere d medications on file prior to visit. Social History Social History Tobacco Use Smoking status: Never Smokeless tobacco: Never Vaping Use Vaping status: Never Used Substance Use Topics Alcohol use: No Drug use: No EXAM: BP 138/94 Pulse 78 Resp 16 Wt (!) 169.4 kg (373 lb 7.4 oz) BMI 45.46 kg/m? General Appearance: Well appearing, alert, in no acute distress, well-hydrated, well nourished. and Obese. Lungs: Lungs clear to auscultation. No wheezing, rhonchi, rales.. Heart: RRR without murmur, gallop, or rubs. No ectopy. Health Maintenance List Hepatitis C Screening Never done HIV Screening Never done BP Controlled (<130/80) Never done Hepatitis B Vaccine(1 of 3 - 19+ 3-dose series) Never done DTaP,Tdap,Td Vaccine(3 - Td or Tdap) due on 04/29/2022 Serum Creatinine due on 03/29/2023 Hemoglobin/Hematocri t due on 03/29/2023 Lipid Screening due on 11/16/2023 Influenza Vaccine(1) due on 05/08/2024 Covid-19 Vaccine( season) due on 05/08/2024 Shingrix Vaccine(1 of 2) due on 2024 Annual PCP Team Chronic Disease Visit due on 10/06/2024 Depression Screening due on 10/06/2024 Anxiety Screening due on 10/06/2024 Diabetes Screening due on 03/29/2025 Colorectal Cancer Screening due on 11/08/2028 Data reviewed None ASSESSMENT/PLAN: 1. Primary hypertension - ICD9: 401.9, ICD10: I10 (primary diagnosis) - Elevated today in office - Continue current medications - Recommend home blood pressure monitoring, to bring results to next visit - Encouraged sodium restriction, DASH or Mediterranean diet - Recommend regular aerobic exercise 2. Stage 3 chronic kid (more content not included)... Normal [facility] [place] 07-15-2024 CNPN Telephone (INTMWS) MAGNOLIA HENDERSON ([id number]) 1975 M Date Time Provider Department 07/15/24 SONIDO KNUTSON INTMWS During your visit today, we recorded the following information about you: Brittny Phelps LPN 07/15/2024 9:52 AM Signed Patient was seen in urgent care yesterday for gout in left ankle area. PATIENT declined med at that time. PATIENT now wants meds this AM. offered steroid and colchicine which he now wants. Pharmacy: [facility] Please review and advise. WILLIAM Campos Mark D, MD 07/15/2024 2:13 PM Signed OK for 9 day prednisone taper as ordered MD Ignacio Sherman Jacqueline, LPN 07/15/2024 2:33 PM Signed Left detailed message on identifiable voicemail. Allergies As of Date: 07/15/2024 (No Known Allergies) Date Reviewed: 07/14/2024 Reviewed by: Lavonne Finley MA - Fully Assessed Reason for Visit: Gout [239] Cmt: patient now wants medications. patient was seen in urgent care yesterday Order(s):predniSONE (DELTASONE) 10 mg tabletTake 4 tabs daily for 3 days, then 2 tabs daily for 3 days, then 1 tab daily for 3 days with food.Disp: 21 tabletRfl: 0 Prescriptions as of 07/15/2024 - predniSONE (DELTASONE) 10 mg tablet Take 4 tabs daily for 3 days, then 2 tabs daily for 3 days, then 1 tab daily for 3 days with food. - labetalol (TRANDATE) 200 mg tablet Take 1 tablet by mouth two times a day. - amLODIPine (NORVASC) 10 mg tablet Take 1 tablet by mouth once daily. - losartan-hydroCHLORO thiazide (HYZAAR) 100-25 mg per tablet Take 1 tablet by mouth once daily. - triamcinolone acetonide (KENALOG) 0.1 % cream Apply 1 application to affected area three times a day. Apply sparingly to area for rash/itching. - CPAP AutoPAP 10-20 cmH2O. Dx: ANNE Problem List As Of Date 07/15/2024 Noted Resolved Hypertension [I10] 06/30/2007 Obesity, Unspecified [E66.9] 06/30/2007 05/02/2010 DYSMETABOLIC SYNDROME X [E88.810] 06/30/2007 Unspecified urinary incontinence [R32] 06/30/2007 09/14/2017 Gastritis [K29.70] 05/23/2009 09/14/2017 ANNE (obstructive sleep apnea) AHI 110 [G47.33] 05/02/2010 Morbid obesity [E66.01] 05/02/2010 Ventral hernia [K43.9] 03/28/2013 Chronic kidney disease [N18.9] 09/14/2017 Family hx of prostate cancer [Z80.42] 10/16/2020 Special screening for malignant neoplasms, colo*11/09/2023 Prescriptions ordered this encounter Disp Refills Start End PREDNISONE 10 MG TABLET 21 t* 0 07/15/2024 07/24/2024 Sig: Take 4 tabs daily for 3 days, then 2 tabs daily for 3 days, then 1 tab daily for 3 days with food. Encounter Status:Closed by PAZ PATEL on 07/15/24 [facility] CNOVnicko 07-14-2024 CNOV Office Visit (WSTR) MAGNOLIA HENDERSON ([id number]) 1975 M Date Time Provider Department 07/14/24 9:30 AM BRADEN BELL [facility] During your visit today, we recorded the following information about you: Temperature Pulse Respiration Blood pressure 97 degrees 67/minute 18/minute 147/97 Weight 167.3 kg Braden Bell MD 07/14/2024 9:28 AM Signed Patient presents with: Gout: L ankle x2 days HPI: Left ankle pain: Duration: started flaring up 3 days ago Location: left ankle Character: burning in the joint, starting to improve today Aggravating: walking Relieving: He missed his allopurinol doses, but feels it is getting better since he resumed it. Pain relievers: Ice, unable to use NSAIDs due to CKD. Associated: swelling, Hx of gout in the same location, he had a URI a few days ago with cough and nasal congestion. Pertinent negatives: Denies numbness, bruising, injury MEDICATIONS: labetalol (TRANDATE) 200 mg tablet Take 1 tablet by mouth two times a day. amLODIPine (NORVASC) 10 mg tablet Take 1 tablet by mouth once daily. losartan-hydroCHLORO thiazide (HYZAAR) 100-25 mg per tablet Take 1 tablet by mouth once daily. triamcinolone acetonide (KENALOG) 0.1 % cream Apply 1 application to affected area three times a day. Apply sparingly to area for rash/itching. CPAP AutoPAP 10-20 cmH2O. Dx: ANNE ALLERGIES: ALLERGIES No Known Allergies VITALS: BP 147/97 Pulse 67 Temp 36.1 ?C (97 ?F) Resp 18 Wt (!) 167.3 kg (368 lb 13.3 oz) SpO2 97% BMI 44.90 kg/m? PHYSICAL EXAM: GEN: pleasant, alert, no acute distress ANKLE: left, compared to right. Swelling over the lateral ankle. Range of motion: inversion - painful, eversion - non-painful, anterior drawer- non-painful. able to bear weight. normal gait. Palpation: Medial malleolus non-painful, lateral malleolus non-painful, Dorsal proximal midfoot - non-painful, ASSESSMENT/PLAN: 1. Acute gout of left ankle, unspecified cause - ICD9: 274.01, ICD10: M10.9 Improving symptoms. He would like to continue preventive medication and expectant management. I discussed additional treatments available for gout which are safe with decreased kidney function (steroid, colchicine). Braden Bell MD Allergies As of Date: 07/14/2024 (No Known Allergies) Date Reviewed: 07/14/2024 Reviewed by: Lavonne Finley MA - Fully Assessed Reason for Visit: Gout [239] Cmt: L ankle x2 days Primary Visit Diagnosis:Acute gout of left ankle, unspecified cause [M10.9] Prescriptions as of 07/14/2024 - labetalol (TRANDATE) 200 mg tablet Take 1 tablet by mouth two times a day. - amLODIPine (NORVASC) 10 mg tablet Take 1 tablet by mouth once daily. - losartan-hydroCHLORO thiazide (HYZAAR) 100-25 mg per tablet Take 1 tablet by mouth once daily. - triamcinolone acetonide (KENALOG) 0.1 % cream Apply 1 application to affected area three times a day. Apply sparingly to area for rash/itching. - CPAP AutoPAP 10-20 cmH2O. Dx: ANNE Problem List As Of Date 07/14/2024 Noted Resolved Hypertension [I10] 06/30/2007 Obesity, Unspecified [E66.9] 06/30/2007 05/02/2010 DYSMETABOLIC SYNDROME X [E88.810] 06/30/2007 Unspecified urinary incontinence [R32] 06/30/2007 09/14/2017 Gastritis [K29.70] 05/23/2009 09/14/2017 ANNE (obstructive sleep apnea) AHI 110 [G47.33] 05/02/2010 Morbid obesity [E66.01] 05/02/2010 Ventral hernia [K43.9] 03/28/2013 Chronic kidney disease [N18.9] 09/14/2017 Family hx of prostate cancer [Z80.42] 10/16/2020 Special screening for malignant neoplasms, colo*11/09/2023 Level of Service: OFFICE/OUTPATIENT ESTABLISHED LOW MDM 20 MIN [18031] Letter Text Encounter Status:Closed by BRADEN BELL on 07/14/24 [facility] [place] 03-28-[address] [facility] MAGNOLIA HENDERSON ([id number]) 1975 M Date Time Provider Department 03/28/24 [facility] During your visit today, we recorded the following information about you: Rosa Ybarra MA 03/28/2024 10:49 AM Signed Type of form: Medical Necessity from [facility] Form received via fax When form is completed, Fax form to [phone] Form has been forwarded to Physician Desk: MC Miramontes Rilee, MA 03/28/2024 2:39 PM Signed Form completed and OV note attached to fax. Paperwork faxed back to Yassine at number below. Rosa Ybarra MA Allergies As of Date: 03/28/2024 (No Known Allergies) Date Reviewed: 11/09/2023 Reviewed by: Priscila Keyes RN - Fully Assessed Reason for Visit: Forms [913] Prescriptions as of 03/28/2024 - labetalol (TRANDATE) 200 mg tablet Take 1 tablet by mouth two times a day. - amLODIPine (NORVASC) 10 mg tablet Take 1 tablet by mouth once daily. - losartan-hydroCHLORO thiazide (HYZAAR) 100-25 mg per tablet Take 1 tablet by mouth once daily. - triamcinolone acetonide (KENALOG) 0.1 % cream Apply 1 application to affected area three times a day. Apply sparingly to area for rash/itching. - CPAP AutoPAP 10-20 cmH2O. Dx: ANNE Problem List As Of Date 03/28/2024 Noted Resolved Hypertension [I10] 06/30/2007 Obesity, Unspecified [E66.9] 06/30/2007 05/02/2010 DYSMETABOLIC SYNDROME X [E88.810] 06/30/2007 Unspecified urinary incontinence [R32] 06/30/2007 09/14/2017 Gastritis [K29.70] 05/23/2009 09/14/2017 ANNE (obstructive sleep apnea) AHI 110 [G47.33] 05/02/2010 Morbid obesity [E66.01] 05/02/2010 Ventral hernia [K43.9] 03/28/2013 Chronic kidney disease [N18.9] 09/14/2017 Family hx of prostate cancer [Z80.42] 10/16/2020 Special screening for malignant neoplasms, colo*11/09/2023 Encounter Status:Closed by ROSA YBARRA on 03/28/24 [facility] Serum or plasma uric acid me asurement (mass/volume)Ordered By: Leola Martino on 11-24-2023 Urate [Mass/Vol] 9.1 mg/dL 3.5-7.2 [facility] Comment on above: The drugs N-Acetylcy steine and Metamizole may falsely depress this assay. Basophil percentageOrdered B y: Leola Martino on 11-21-2023 Basophil percentage 2.5 mg/dL 2.5-4.9 [facility] Chloride [Moles/Vol] 108 mmol/L 98-107 [facility] Glucose [Mass/Vol] 110 mg/dL 74-106 [facility] Comment on above: Fasting Glucose resu lt from 100 to 125 mg/dL suggests IMPAIRED HOMEOSTASIS per A.D.A. criteria. Potassium [Moles/Vol] 4.2 mmol/L 3.5-5.1 [facility] Sodium [Moles/Vol] 140 mmol/L 136-145 [facility] Laboratory - Chemistry and C hemistry - challengeOrdered By: Leola Martino on 11-21-2023 CO2 [Moles/Vol] 29.0 mmol/L 21.0-32.0 [facility] Urea nitrogen/Creatinine [Mass ratio] 12.6 mg/mg 10-20 [facility] No Panel InformationOrdered By: Leola Martino on 11-21-2023 Estimated GFR (MDRD) Amer 68 mL/min >60 [facility] Comment on above: GFR Calc Estimated GFR (MDRD) Non-Af Amer 56 mL/min >60 [facility] Comment on above: Non- GFR Calc Serum or plasma calcium raegan urement (mass/volume)Ordered By: Leola Martino on 11-21-2023 Calcium [Mass/Vol] 9.0 mg/dL 8.5-10.1 [facility] Serum or plasma creatinine m easurement (mass/volume)Ordered By: Leola Martino on 11-21-2023 Creatinine [Mass/Vol] 1.43 mg/dL 0.70-1.30 [facility] Comment on above: The validity of the calculated GFR & GFRAA in patients over 70 years has not been determined. Clinical correlation is essential. Serum or plasma urea nitroge n measurement (mass/volume)Ordered By: Leola Martino on 11-21-2023 Urea nitrogen [Mass/Vol] 18 mg/dL 7-18 [facility] Thin prep Papanicolaou smear with manual screeningOrdered By: Leola Martino on 11-21-2023 Thin prep Papanicolaou smear with manual screening 3.6 g/dL 3.2-5.0 [facility] Colonoscopy Study observatio non 11-09-2023 [facility] INFLUENZA A&B MOLECULAR (POC )on 08-30-2023 Flu A (POCT) Positive Abnormal Negative [facility] Procedural Control Valid [facility] Basophil percentageOrdered B y: Dr. Martino on 11-29-2022 Basophil percentage 2.6 mg/dL 2.5-4.9 [facility] Chloride [Moles/Vol] 108 mmol/L 98-107 [facility] Glucose [Mass/Vol] 112 mg/dL 74-106 [facility] Comment on above: Fasting Glucose resu lt from 100 to 125 mg/dL suggests IMPAIRED HOMEOSTASIS per A.D.A. criteria. Potassium [Moles/Vol] 3.9 mmol/L 3.5-5.1 [facility] Sodium [Moles/Vol] 140 mmol/L 136-145 [facility] Laboratory - Chemistry and C hemistry - challengeOrdered By: Dr. Martino on 11-29-2022 CO2 [Moles/Vol] 28.0 mmol/L 21.0-32.0 [facility] Urea nitrogen/Creatinine [Mass ratio] 15.2 mg/mg 10-20 [facility] No Panel InformationOrdered By: Dr. Martino on 11-29-2022 Estimated GFR (MDRD) Amer 74 mL/min >60 [facility] Comment on above: GFR Calc Estimated GFR (MDRD) Non-Af Amer 62 mL/min >60 [facility] Comment on above: Non- GFR Calc Serum or plasma albumin raegan urement (mass/volume)Ordered By: Dr. Martino on 11-29-2022 Albumin [Mass/Vol] 3.5 g/dL 3.2-5.0 [facility] Serum or plasma calcium raegan urement (mass/volume)Ordered By: Dr. Martino on 11-29-2022 Calcium [Mass/Vol] 8.9 mg/dL 8.5-10.1 [facility] Serum or plasma creatinine m easurement (mass/volume)Ordered By: Dr. Martino on 11-29-2022 Creatinine [Mass/Vol] 1.32 mg/dL 0.70-1.30 [facility] Comment on above: The validity of the calculated GFR & GFRAA in patients over 70 years has not been determined. Clinical correlation is essential. Serum or plasma urea nitroge n measurement (mass/volume)Ordered By: Dr. Martino on 11-29-2022 Urea nitrogen [Mass/Vol] 20 mg/dL 7-18 [facility] Urine creatinine measurement (mass/volume)Ordered By: Dr. Martino on 11-29-2022 Creatinine (U) [Mass/Vol] 116.00 mg/dL NO RANGE EST. [facility] Urine protein measurement (m ass/volume)Ordered By: Dr. Martino on 11-29-2022 Protein (U) [Mass/Vol] 19.6 mg/dL 0.0-11.8 [facility] Urine protein/creatinine mas s ratioOrdered By: Dr. Martino on 11-29-2022 Protein/Creatinine (U) [Mass ratio] 169 mg/g CRE 0-200 [facility] Basophil percentageon 2021 Basophil percentage 2.8 mg/dL 2.5-4.9 [facility] Work Phone: Chloride [Moles/Vol] 107 mmol/L 98-107 [facility] Work Phone: Glucose [Mass/Vol] 106 mg/dL 74-106 [facility] Work Phone: Comment on above: Fasting Glucose resu lt from 100 to 125 mg/dL suggests IMPAIRED HOMEOSTASIS per A.D.A. criteria. Potassium [Moles/Vol] 3.7 mmol/L 3.5-5.1 [facility] Work Phone: [phone] Sodium [Moles/Vol] 139 mmol/L 136-145 [facility] Work Phone: WBC (Bld) [#/Vol] 6.6 10*3/uL 4.4-11.0 [facility] Work Phone: Blood erythrocytes count (nu mber/volume)on 03-29-2022 RBC (Bld) [#/Vol] 5.14 10*6/uL 4.6-6.2 [facility] Work Phone: Blood hemoglobin measurement (mass/volume)on 03-29-2022 Hemoglobin (Bld) [Mass/Vol] 15.2 g/dL 13.0-16.5 [facility] Work Phone: Blood platelet mean volumeon 03-29-2022 Platelet mean volume (Bld) [Entitic vol] 10.6 fL 6.2-12.0 [facility] Work Phone: Determination of erythrocyte mean corpuscular volume (MCV)on 03-29-2022 MCV (RBC) [Entitic vol] 90.9 fL 80-94 [facility] Work Phone: Hematocrit Auto (Bld) [Volum e fraction]on 03-29-2022 Hematocrit (Bld) [Volume fraction] 46.7 % 40-54 [facility] Work Phone: Laboratory - Chemistry and C hemistry - challengeon 03-29-2022 CO2 [Moles/Vol] 28.0 mmol/L 21.0-32.0 [facility] Work Phone: Urea nitrogen/Creatinine [Mass ratio] 11.9 mg/mg 10-20 [facility] Work Phone: Laboratory - Hematology and Cell countson 03-29-2022 Erythrocyte distribution width (RBC) [Entitic vol] 41.3 fL 35.1-43.9 [facility] Work Phone: Erythrocyte distribution width (RBC) [Ratio] 12.5 % 11.6-14.6 [facility] Work Phone: MCH (RBC) [Entitic mass] 29.6 pg 27.0-32.0 [facility] Work Phone: MCHC Auto (RBC) [Mass/Vol]on 03-29-2022 MCHC (RBC) [Mass/Vol] 32.5 g/dL 32-36 [facility] Work Phone: No Panel Informationon 03-29 Estimated GFR (MDRD) Amer 68 mL/min >60 [facility] Work Phone: Comment on above: GFR Calc Estimated GFR (MDRD) Non-Af Amer 56 mL/min >60 [facility] Work Phone: Comment on above: Non- GFR Calc Platelets bldon 03-29-2022 Platelets (Bld) [#/Vol] 270 10*3/uL 150-450 [facility] Work Phone: Serum or plasma albumin raegan urement (mass/volume)on 03-29-2022 Albumin [Mass/Vol] 3.4 g/dL 3.2-5.0 [facility] Work Phone: Serum or plasma calcium raegan urement (mass/volume)on 03-29-2022 Calcium [Mass/Vol] 8.8 mg/dL 8.5-10.1 [facility] Work Phone: Serum or plasma creatinine m easurement (mass/volume)on 03-29-2022 Creatinine [Mass/Vol] 1.43 mg/dL 0.70-1.30 [facility] Work Phone: Comment on above: The validity of the calculated GFR & GFRAA in patients over 70 years has not been determined. Clinical correlation is essential. Serum or plasma urea nitroge n measurement (mass/volume)on 03-29-2022 Urea nitrogen [Mass/Vol] 17 mg/dL 7-18 [facility] Work Phone: Vital Signs Date Time Vital Sign Value Performing Clinician Faci wilbert 02-14-2025 08:40-0400 Diastolic blood pressure 100 mm[Hg] Sonido Knutson MD Work Phone: [facility] 02-14-2025 08:40-0400 Systolic blood pressure 152 mm[Hg] Sonido Knutson MD Work Phone: [facility] 02-14-2025 08:36-0400 Body mass index (BMI) [Ratio] 45.7 kg/m2 Sonido Knutson MD Work Phone: [facility] 02-14-2025 08:36-0400 Body weight 170.3 kg Sonido Knutson MD Work Phone: [facility] 02-14-2025 08:36-0400 Heart rate 70 /min Sonido Knutson MD Work Phone: [facility] 02-14-2025 08:36-0400 Respiratory rate 16 /min Sonido Knutson MD Work Phone: [facility] 08-16-2024 08:50-0500 Diastolic blood pressure 94 mm[Hg] Sonido Knutson MD Work Phone: [facility] 08-16-2024 08:50-0500 Systolic blood pressure 138 mm[Hg] Sonido Knutson MD Work Phone: [facility] 08-16-2024 08:48-0500 Body mass index (BMI) [Ratio] 45.46 kg/m2 Sonido Knutson MD Work Phone: [facility] 08-16-2024 08:48-0500 Body weight 169.4 kg Sonido Knutson MD Work Phone: [facility] 08-16-2024 08:48-0500 Heart rate 78 /min Sonido Knutson MD Work Phone: [facility] 08-16-2024 08:48-0500 Respiratory rate 16 /min Sonido Knutson MD Work Phone: [facility] 07-14-2024 09:10-0500 Body mass index (BMI) [Ratio] 44.9 kg/m2 Braden Bell MD Work Phone: [facility] 07-14-2024 09:10-0500 Body temperature 97 [degF] Braden Bell MD Work Phone: [facility] 07-14-2024 09:10-0500 Body weight 167.3 kg Braden Bell MD Work Phone: [facility] 07-14-2024 09:10-0500 Diastolic blood pressure 97 mm[Hg] Braden Bell MD Work Phone: [facility] 07-14-2024 09:10-0500 Heart rate 67 /min Braden Bell MD Work Phone: [facility] 07-14-2024 09:10-0500 Respiratory rate 18 /min Braden Bell MD Work Phone: [facility] 07-14-2024 09:10-0500 SaO2% (BldA) [Mass fraction] 97 % Braden Bell MD Work Phone: [facility] 07-14-2024 09:10-0500 Systolic blood pressure 147 mm[Hg] Braden Bell MD Work Phone: [facility] 11-09-2023 10:43-0500 Diastolic blood pressure 88 mm[Hg] Fallon Culver MD Work Phone: [facility] 11-09-2023 10:43-0500 Heart rate 67 /min Fallon Culver MD Work Phone: [facility] 11-09-2023 10:43-0500 Respiratory rate 18 /min Fallon Culver MD Work Phone: [facility] 11-09-2023 10:43-0500 SaO2% (BldA) [Mass fraction] 97 % Fallon Culver MD Work Phone: [facility] 11-09-2023 10:43-0500 Systolic blood pressure 136 mm[Hg] Fallon Culver MD Work Phone: [facility] 08-30-2023 08:36-0500 Body temperature 100.2 [degF] Bentley Dias APRN.CONSTRUCTION SALES REPRESENTATIVE Work Phone: [facility] 08-30-2023 08:36-0500 Body weight 163.29 kg Bentley Dias APRN.CONSTRUCTION SALES REPRESENTATIVE Work Phone: [facility] 08-30-2023 08:36-0500 Diastolic blood pressure 84 mm[Hg] Bentley Dias APRN.CONSTRUCTION SALES REPRESENTATIVE Work Phone: [facility] 08-30-2023 08:36-0500 Heart rate 106 /min Bentley Arun [employer]KER.CONSTRUCTION SALES REPRESENTATIVE Work Phone: [facility] 08-30-2023 08:36-0500 Respiratory rate 18 /min Bentley Arun [employer] MAKER.CONSTRUCTION SALES REPRESENTATIVE Work Phone: [facility] 08-30-2023 08:36-0500 SaO2% (BldA) [Mass fraction] 96 % Bentley Arun [employer] MAKER.CONSTRUCTION SALES REPRESENTATIVE Work Phone: [facility] 08-30-2023 08:36-0500 Systolic blood pressure 138 mm[Hg] Bentley Arun [employer] MAKER.CONSTRUCTION SALES REPRESENTATIVE Work Phone: [facility] 06-10-2023 07:38-0400 Body temperature 97.11 [degF] Senia Shanda [employer] MAKER.CONSTRUCTION SALES REPRESENTATIVE Work Phone: [facility] 06-10-2023 07:38-0400 Body weight 164.56 kg Senia Shanda [employer] MAKER.CONSTRUCTION SALES REPRESENTATIVE Work Phone: [facility] 06-10-2023 07:38-0400 Diastolic blood pressure 116 mm[Hg] Senia Shanda [employer] MAKER.CONSTRUCTION SALES REPRESENTATIVE Work Phone: [facility] 06-10-2023 07:38-0400 Heart rate 72 /min Senia Shanda [employer] MAKER.CONSTRUCTION SALES REPRESENTATIVE Work Phone: [facility] 06-10-2023 07:38-0400 Respiratory rate 18 /min Senia Shanda [employer] MAKER.CONSTRUCTION SALES REPRESENTATIVE Work Phone: [facility] 06-10-2023 07:38-0400 SaO2% (BldA) [Mass fraction] 96 % Senia Shanda [employer] MAKER.CONSTRUCTION SALES REPRESENTATIVE Work Phone: [facility] 06-10-2023 07:38-0400 Systolic blood pressure 169 mm[Hg] Senia Shanda [employer] MAKER.CONSTRUCTION SALES REPRESENTATIVE Work Phone: [facility] 07-22-2022 08:52-0500 Body weight 166.29 kg Sonido Knutson MD Work Phone: [facility] 07-22-2022 08:52-0500 Diastolic blood pressure 82 mm[Hg] Sonido Knutson MD Work Phone: [facility] 07-22-2022 08:52-0500 Heart rate 68 /min Sonido Knutson MD Work Phone: [facility] 07-22-2022 08:52-0500 Respiratory rate 16 /min Sonido Knutson MD Work Phone: [facility] 07-22-2022 08:52-0500 Systolic blood pressure 124 mm[Hg] Sonido Knutson MD Work Phone: [facility] Encounters Encounter Date Encounter Type Care Provider Facility Start: 02-14-2025 End: 02-14-2025 Follow-up encounter Sonido Knutson MD Work Phone: [facility] Comment on above: Results Start: 02-14-2025 End: 02-14-2025 Office outpatient visit 25 minutes Soindo Knutson MD Work Phone: [facility] Comment on above: Primary hypertension (Primary Dx); ANNE (obstructive sleep apnea) AHI 110; Gout, unspecified cause, unspecified chronicity, unspecified site; Screening for depression; Encounter for screening examination for other mental health and behavioral disorders Start: 02-14-2025 End: 02-14-2025 ambulatory SONIDO KNUTSON Facility:[facility] Start: 11-08-2024 End: 11-08-[address] Sonido Knutson MD Work Phone: [facility] Work Phone: Start: 11-08-2024 End: 11-08-[address] Leola Martino DO -Laboratory Work Phone: Start: 11-08-2024 End: 11-08-2024 ambulatory Sonido Knutson Facility:[facility] Start: 08-16-2024 End: 08-16-2024 ambulatory SONIDO KNUTSON Facility:[facility] Start: 08-16-2024 End: 08-16-2024 Patient encounter procedure Sonido Knutson MD Work Phone: [facility] Comment on above: Primary hypertension (Primary Dx); Stage 3 chronic kidney disease, unspecified whether stage 3a or 3b CKD (HCC); ANNE (obstructive sleep apnea) AHI 110; Gout, unspecified cause, unspecified chronicity, unspecified site; Encounter for immunization Start: 07-15-2024 End: 07-15-2024 Telephone encounter Sonido Knutson MD Work Phone: [facility] Comment on above: Gout (patient now wa nts medications. patient was seen in urgent care yesterday) Start: 07-14-2024 End: 07-14-2024 Office outpatient visit 15 minutes Braden Bell MD Work Phone: [facility] Comment on above: Acute gout of left a nkle, unspecified cause (Primary Dx) Start: 07-14-2024 End: 07-14-2024 ambulatory SONIDO KNUTSON Facility:[facility] Start: 03-28-2024 Telephone encounter Sonido tucker MD Work Phone: [facility] Comment on above: Forms Start: 11-24-2023 End: 11-24-2023 ambulatory [facility] Work Phone: Start: 11-24-2023 End: 11-24-2023 Patient encounter procedure [facility]-Laboratory, Phy Office 3rd Flr Start: 11-21-2023 End: 11-21-2023 ambulatory [facility] Work Phone: Start: 11-21-2023 End: 11-21-2023 Patient encounter procedure [facility] Work Phone: Start: 11-09-2023 End: 11-09-2023 Subsequent hospital visit by physician Fallon Culver MD Work Phone: [facility] Comment on above: Special screening fo r malignant neoplasms, colon [Z12.11] Start: 08-30-2023 End: 08-30-2023 Patient encounter procedure Bentley Dias APRN.CNP Work Phone: [facility] Comment on above: Influenza A (Primary Dx); Influenza-like illness Start: 08-07-2023 Refill Sonido mott MD Work Phone: [facility] Comment on above: Refill Request Start: 06-10-2023 End: 06-10-2023 Patient encounter procedure Senia Land APRN.CONSTRUCTION SALES REPRESENTATIVE Work Phone: [facility] Comment on above: Insect bite of abdom inal wall, initial encounter (Primary Dx) Start: 11-29-2022 End: 11-29-2022 ambulatory [facility] Work Phone: Start: 11-29-2022 End: 11-29-2022 Patient encounter procedure [facility] Start: 07-22-2022 End: 07-22-2022 Patient encounter procedure Sonido Knutson MD Work Phone: [facility] Comment on above: Essential hypertensi on (Primary Dx); ANNE (obstructive sleep apnea) AHI 110; Stage 3 chronic kidney disease, unspecified whether stage 3a or 3b CKD (HCC); Need for influenza vaccination; Need for COVID-19 vaccine Start: 03-29-2022 End: 03-29-2022 Patient encounter procedure [facility]Labor[facility] Procedures Date Procedure Procedure Detail Performing Clinician Start: 02-14-2025 Adult depression scr eening assessment Sonido Knutson MD Work Phone: Start: 02-14-2025 Lipid 1996 panel - S myah or Plasma Sonido Knutson MD Work Phone: Start: 08-16-2024 P[employer]ER[employer] COVI D-19 VACCINE AGE 12+ YR (COMIRNATY) Sonido Knutson MD Work Phone: Start: 11-09-2023 Colonoscopy flx dx w /collj spec when pfrmd Sonido Knutson MD Work Phone: Start: 11-09-2023 Colonoscopy Fallon Culver MD Work Phone: Start: 10-06-2023 Adult depression scr eening assessment Braden Bell MD Work Phone: Start: 08-30-2023 INFLUENZA A&B MOLECU LAR (POC) Bentley Dias APRN.CONSTRUCTION SALES REPRESENTATIVE Work Phone: Start: 07-22-2022 INFLUENZA VACCINE QUADRIVALENT 6 MO - 64 YRS IM Sonido Knutson MD Work Phone: Start: 07-22-2022 PFIZER-BIONTECH COVI D-19 BIVALENT BOOSTER VACCINE, AGE 12+ YR Sonido Knutson MD Work Phone: Start: 11-15-2018 Lipid 1996 panel - S myah or Plasma [place] [employer].CONSTRUCTION SALES REPRESENTATIVE Work Phone: Plan of Treatment Date Care Activity Detail Author Start: 02-14-2030 Lipid panel Lipid Screening [facility] Start: 11-08-2028 Screening for malign ant neoplasm of colon [facility] Start: 02-15-2028 Diabetes Screening Diabetes Screenin g [facility] Start: 02-14-2026 Annual PCP Team Patrol Captain mayda Disease Visit Annual PCP Team Chronic Disease Visit [facility] Start: 02-14-2026 Anxiety Screening Anxiety Screening [facility] Start: 02-14-2026 Creatinine measurement Serum Creatin ine [facility] Start: 02-14-2026 Depression Screening Depression Scre ening [facility] Start: 02-14-2026 Pneumococcal Vaccine : 50+ (2 of 2 - PCV) Pneumococcal Vaccine: 50+ (2 of 2 - PCV) [facility] Comment on above: Postponed from 08/15 (Declined at this time) Start: 08-16-2025 Annual PCP Team Patrol Captain mayda Disease Visit Annual PCP Team Chronic Disease Visit [facility] Start: 08-16-2025 Hepatitis C screening Hepatitis C Sc [facility] Comment on above: Postponed from 08/15 (Declined at this time) Start: 08-16-2025 HIV screening HIV Screening [facility] Comment on above: Postponed from 08/15 (Declined at this time) Start: 05-30-2025 End: 05-30-2025 Patient encounter procedure 05/30/2025 9:00 AM EDT Office Visit [facility] [address] [place] [id number] Sonido Knutson MD [address] [place] [id number] 3 mo f/u [facility] Comment on above: 3 mo f/u Start: 05-17-2025 End: 08-16-2025 Basic metabolic 2000 panel - Serum or Plasma BASIC METABOLIC PANEL Lab Routine Stage 3 chronic kidney disease, unspecified whether stage 3a or 3b CKD (HCC) Gout, unspecified cause, unspecified chronicity, unspecified site Expected: 05/17/2025 (Approximate), Expires: 08/16/2025 [facility] Work Phone: Comment on above: Expected: 05/17/2025 (Approximate), Expires: 08/16/2025 Start: 05-17-2025 End: 08-16-2025 Urate [Mass/volume] in Serum or Plasma URIC ACID Lab Routine Gout, unspecified cause, unspecified chronicity, unspecified site Expected: 05/17/2025 (Approximate), Expires: 08/16/2025 [facility] Comment on above: Expected: 05/17/2025 (Approximate), Expires: 08/16/2025 Start: 03-29-2025 DIABETES SCREEN DIABETES SCREEN [facility] Start: 03-29-2025 Diabetes Screening Diabetes Screenin g [facility] Start: 02-14-2025 End: 02-14-2025 Patient encounter procedure 02/14/2025 8:40 AM EDT Office Visit [facility] [address] [place] [id number] Sonido Knutson MD [address] [place] [id number] 6 mo f/u [facility] Comment on above: 6 mo f/u Start: 11-08-2024 Screening for malign ant neoplasm of colon [facility] Start: 10-06-2024 Annual PCP Team Patrol Captain mayda Disease Visit Annual PCP Team Chronic Disease Visit [facility] Start: 10-06-2024 Anxiety Screening Anxiety Screening [facility] Start: 10-06-2024 Depression Screening Depression Scre ening [facility] Start: 08-16-2024 End: 08-16-2024 Patient encounter procedure 08/16/2024 8:40 AM EST Office Visit [facility] [address] [place] [id number] Sonido Knutson MD [address] [place], [place] [id number] Follow reschedule [facility] Comment on above: Follow reschedule Start: 2024 Shingrix Vaccine (1 of 2) Shingrix Vaccine (1 of 2) [facility] Start: 05-08-2024 Covid-19 Vaccine () Covid-19 Vaccine () [facility] Start: 05-08-2024 Influenza vaccination Influenza Vacc ine (#1) [facility] Start: 04-05-2024 End: 04-05-2024 Patient encounter procedure 04/05/2024 7:40 AM EDT Office Visit Family [facility] [address] [facility] [place], [place] [id number] Irving Smith APRN.CONSTRUCTION SALES REPRESENTATIVE [address] [facility] [place], [place] [id number] 6 month follow up [facility] Comment on above: 6 month follow up Start: 01-28-2024 Annual PCP Team Patrol Captain mayda Disease Visit Annual PCP Team Chronic Disease Visit [facility] Start: 01-28-2024 Colorectal Cancer Screening Colorectal Cancer Screening [facility] Comment on above: Postponed from 08/15 (Declined at this time) Start: 01-28-2024 Hepatitis C Screening Hepatitis C [facility] Comment on above: Postponed from 08/15 (Declined at this time) Start: 01-28-2024 Hepatitis C screening Hepatitis C [facility] Comment on above: Postponed from 08/15 (Declined at this time) Start: 01-28-2024 HIV Screening HIV Screening [facility] Comment on above: Postponed from 08/15 (Declined at this time) Start: 01-28-2024 HIV screening HIV Screening [facility] Comment on above: Postponed from 08/15 (Declined at this time) Start: 01-28-2024 Screening for malign ant neoplasm of colon Colorectal Cancer Screening [facility] Comment on above: Postponed from 08/15 (Declined at this time) Start: 11-16-2023 Lipid 1996 panel - S myah or Plasma Lipid Screening [facility] Start: 11-16-2023 Lipid panel Lipid Screening [facility] Start: 11-16-2023 LIPID SCREEN LIPID SCREEN [facility] Start: 09-07-2023 Behavioral Health Screening Behavioral Health Screening [facility] Start: 07-22-2023 ANNUAL PCP TEAM COMMANDING OFFICER MOTORIZED SQUAD MAYDA DISEASE VISIT ANNUAL PCP TEAM CHRONIC DISEASE VISIT [facility] Start: 05-08-2023 Covid-19 Vaccine () Covid-19 Vaccine () [facility] Start: 05-08-2023 Influenza vaccination Influenza Vacc ine (#1) [facility] Start: 03-29-2023 Complete blood count Hemoglobin/Dmitry tocrit [facility] Start: 03-29-2023 Creatinine measurement Serum Creatin ine [facility] Start: 03-29-2023 HEMOGLOBIN/HEMATOCRIT HEMOGLOBIN/HEM ATOCRIT [facility] Start: 03-29-2023 SERUM CREATININE SERUM CREATININE Cl [facility] Start: 01-19-2023 COLORECTAL CANCER SCREENING COLORECTAL CANCER SCREENING [facility] Comment on above: Postponed from 08/15 (Declined at this time) Start: 10-15-2022 HEPATITIS C SCREENING HEPATITIS C [facility] [place] [facility] Comment on above: Postponed from 08/15 (Declined at this time) Start: 10-15-2022 HIV SCREENING HIV SCREENING [facility] Comment on above: Postponed from 08/15 (Declined at this time) Start: 04-29-2022 Urine microalbumin profile [facility] Start: 2019 COLOGUARD (FIT-DNA) COLOGUARD (FIT-D NA) [facility] Start: 2019 Colonoscopy COLONOSCOPY [facility] Start: [address] COLONOGRAPHY [facility] Start: 2019 FECAL OCCULT BLOOD FECAL OCCULT BLOO D [facility] Start: 2019 Prostate specific antigen measurement Prostate Cancer Screening Discussion [facility] Start: 2019 Screening for malign ant neoplasm of colon [facility] Start: 2019 SIGMOIDOSCOPY SIGMOIDOSCOPY [facility] Start: 1993 Hepatitis B Vaccine (1 of 3 - 19+ 3-dose series) Hepatitis B Vaccine (1 of 3 - 19+ 3-dose series) [facility] Start: 1992 BP CONTROLLED (<130/80) BP CONTROLLE D (<130/80) [facility] Start: 1992 Hepatitis C screening Hepatitis C Sc [place] [facility] Start: 1992 HIV screening HIV Screening [facility] Start: 1992 zzBP Controlled (<130/80) (Retired) zzBP Controlled (<130/80) (Retired) [facility] Start: 1974 HEPATITIS B (1 of 3 - 3-dose series) HEPATITIS B (1 of 3 - 3-dose series) [facility] Start: 1974 Hepatitis B Vaccine (1 of 3 - 3-dose series) Hepatitis B Vaccine (1 of 3 - 3-dose series) [facility] SURGICAL PATHOLOGY [facility] Work Phone: Comment on above: Release Upon Juan Ain g for 1 Occurrences starting 11/09/2023, 1 completed [facility] Immunizations Immunization Date Immunization Notes Care Provider [facility] 08-16-2024 COVID-19 vaccine, ag e 12+ yr ([facility] Sonido Knutson MD Work Phone: [facility] 08-16-2024 influenza, seasonal, injectable Sonido Knutson MD Work Phone: [facility] 10-06-2023 COVID-19 vaccine, ag e 12+ yr, season (PFIZER-BIONTECH) Fallon Cuvler MD Work Phone: [facility] 10-06-2023 influenza, injectabl e, quadrivalent, contains preservative Fallon Culver MD Work Phone: [facility] 10-06-2023 influenza virus vacc ine, unspecified formulation Sonido Knutson MD Work Phone: [facility] 07-22-2022 COVID-19 booster vaccine, age 12+ yr, bivalent (PFIZER-BIONTECH) Sonido Knutson MD Work Phone: [facility] 07-22-2022 influenza, injectabl e, quadrivalent, contains preservative Sonido Knutson MD Work Phone: [facility] 07-22-2022 influenza virus vacc ine, unspecified formulation [place] [employer]STRUCTION SALES REPRESENTATIVE Work Phone: [facility] 07-08-2021 influenza, seasonal, injectable Sonido Knutson MD Work Phone: [facility] 07-09-2020 influenza, seasonal, injectable Sonido Knutson MD Work Phone: [facility] 07-11-2019 influenza, seasonal, injectable Sonido Knutson MD Work Phone: [facility] 07-12-2018 influenza, injectabl e, quadrivalent, contains preservative Sonido Knutson MD Work Phone: [facility] 07-08-2017 influenza, injectabl e, quadrivalent, contains preservative Sonido Knutson MD Work Phone: [facility] 08-24-2015 influenza, injectabl e, quadrivalent, contains preservative Sonido Knutson MD Work Phone: [facility] 07-27-2014 influenza, seasonal, injectable Sonido Knutson MD Work Phone: [facility] Work Phone: 04-29-2012 tetanus toxoid, redu lynn diphtheria toxoid, and acellular pertussis vaccine, adsorbed Sonido Knutson MD Work Phone: [facility] 08-18-2011 influenza virus vacc ine, unspecified formulation Sonido Knutson MD Work Phone: [facility] 08-06-2010 influenza virus vacc ine, unspecified formulation Sonido Knutson MD Work Phone: [facility] Work Phone: 06-30-2007 tetanus toxoid, redu lynn diphtheria toxoid, and acellular pertussis vaccine, adsorbed Sonido Knutson MD Work Phone: [facility] Work Phone: 05-18-2007 pneumococcal polysaccharide vaccine, 23 valent Sonido Knutson MD Work Phone: [facility] Work Phone: Payers Date Payer Category Payer Self-pay [id number] 2019 Private Health Insurance M[employer] PPO [id number] 2019 Unknown [id number] 2013 Unknown [id number] Unknown [id number] Social History Date Type Detail Facility Start: 09-01-2020 Tobacco smoking stat us WAIS Unknown if ever smoked [facility] Start: 09-01-2020 With [facility] Start: 1975 Sex Assigned At Male [facility] Start: 09-01-2020 End: 07-22-2022 Tobacco smoking status NHIS Never smoked tobacco [facility] Start: 07-22-2022 Tobacco use and exposure Smokeless tobacco non-user [facility] Start: 07-22-2022 End: 02-14-2025 Alcohol intake Current non-drinker of alcohol (finding) [facility] Start: 1975 Sex Assigned At Not on file [facility] Start: 07-12-2022 End: 07-22-2022 Exposure to SARS-CoV-2 (event) Not sure [facility] Start: 01-27-2023 End: 06-10-2023 History of Social function [facility] Work Phone: Start: 01-27-2023 End: 06-10-2023 Tobacco use panel [facility] Work Phone: Adult Depression Screening Assessment 0 [facility] Work Phone: Start: 11-22-2024 Sex Male (finding) [facility] Clinical Notes 05-23-2009 to 02-14-2025 Telephone Encounter - Clau Gonzales MA - 02/14/2025 5:08 PM EDTTelephone Encounter - Clau Gonzales MA - 02/14/2025 5:08 PM MYLESTESonido olvera MD - 02/14/2025 8:40 AM EDT Note Date & Type Note Facility 02-14-2025 Telephone encount er Note Pt notified and voiced understanding. Clau Gonzales MA [facility] 02-14-2025 Miscellaneous Notes Formattin g of this note might be different from the original. Pt notified and voiced understanding. Clau Gonzales MA Please notify patient that his labs look good, except his uric acid level is still high at 8.9. I would suggest increasing the allopurinol to 300 mg daily, and recheck level in 3 months. Sonido Knutson MD documented in this encounter [facility] 02-14-2025 Telephone encount er Note Please notify patient that his labs look good, except his uric acid level is still high at 8.9. I would suggest increasing the allopurinol to 300 mg daily, and recheck level in 3 months. Sonido Knutson MD [facility] 02-14-2025 History of Presen t illness Narrative Chief Complaint Patient presents with: F/U 6 Month HPI Magnolia Henderson is a 49 year old male who presents here today for 6 month follow up. Denies any bowel, Gi, or urinary issues. ANNE: Uses APAP at 10-20 cm water intermittently. This is working well for him when using with benefit. HTN: Taking Norvasc 10 mg daily, Hyzaar 100-25 mg daily, and Labetalol 200 mg 1 pill BID. No chest pains or dizziness. Occasional sob, but feels this is related to lack of exercise. Denies checking BP at home. Has been noticing some swelling in b/l legs the last couple of weeks, improves with elevation.. CKD - Follows with Nephrology, Dr. Martino. Previously seen every 6 months for CKD with routine labs being monitored. Last appt in November. Pt reports that Dr. Martino states since everything has been stable, will only need to be seen as needed. Gout - Was started on Allopurinol 100 mg once daily by Nephrology for recurrent gout flare ups in L ankle. Was seen in last year for this and given Prednisone to treat acutely. Pt asking for PCP to continue treatment as Nephrology only gave him a #30 day Rx. Would like to avoid flare ups. HM - Anx/Dep screening negative. Declines Pneumonia today. Past medical history, appointments, medications, allergies reviewed. Previous Medical History PAST MEDICAL HISTORY Diagnosis Date Chronic kidney disease 09/14/2017 Dysmetabolic syndrome X Hypertension Morbid obesity (HCC) ANNE (obstructive sleep apnea) on CPAP Previous Surgical History PAST SURGICAL HISTORY Procedure Laterality Date COLONOSCOPY N/A 11/09/2023 HERNIA REPAIR W/MESH 04/12/2013 Ventral hernia w/ medium Ventralex patch Family History FAMILY HISTORY Problem Relation Age of Onset Thyroid Mother Kidney Disease Father dialysis Diabetes Other Cousins, uncles Hypertension Father Patient Allergies ALLERGIES No Known Allergies Current Medications Current Outpatient Medications on File Prior to Visit Medication Sig losartan-hydroCHLOROthiazide (HYZAAR) 100-25 mg per tablet Take 1 tablet by mouth once daily. labetalol (TRANDATE) 200 mg tablet Take 1 [...] Never Smokeless tobacco: Never Vaping Use Vaping status: Never Used Substance Use Topics Alcohol use: No Drug use: No EXAM: BP 152/100 (BP Site: Right Arm, BP Position: Sitting, BP Cuff Size: Large Adult) Pulse 70 Resp 16 Wt (!) 170.3 kg (375 lb 7.1 oz) BMI 45.70 kg/m General Appearance: Well appearing, alert, in no acute distress, well-hydrated, well nourished.. Lungs: Lungs clear to auscultation. No wheezing, rhonchi, rales.. Heart: RRR without murmur, gallop, or rubs. No ectopy. No pitting edema. Health Maintenance List Depression Screening Never done Anxiety Screening Never done BP Controlled (<130/80) Never done Hepatitis B Vaccine(1 of 3 - 19+ 3-dose series) Never done Prostate Cancer Screening Discussion Never done DTaP,Tdap,Td Vaccine(3 - Td or Tdap) due on 04/29/2022 Serum Creatinine due on 03/29/2023 Lipid Screening due on 11/16/2023 Shingrix Vaccine(1 of 2) Never done Pneumococcal Vaccine: 50+(2 of 2 - PCV) due on 2024 Hepatitis C Screening due on 08/16/2025 HIV Screening due on 08/16/2025 Diabetes Screening due on 03/29/2025 Annual PCP Team Chronic Disease Visit due on 08/16/2025 Colorectal Cancer Screening due on 11/08/2028 Influenza Vaccine Completed Covid-19 Vaccine Completed Data reviewed External labs. ASSESSMENT/PLAN: 1. Primary hypertension - ICD9: 401.9, ICD10: I10 (primary diagnosis) - Uncontrolled - Continue current medications - Recommend home blood pressure monitoring, to bring results to next visit - Encouraged sodium restriction, DASH or Mediterranean diet - Recommend regular aerobic exercise - Monitor BP at home to verify control - COMPREHENSIVE METABOLIC PANEL - COMPLETE BLOOD COUNT - LIPID PANEL, FASTING 2. ANNE (obstructive sleep apnea) AHI 110 - ICD9: 327.23, ICD10: G47.33 Continue CPAP 3. Gout, unspecified cause, unspecified chronicity, unspecified site - ICD9: 274.9, ICD10: M10.9 Continue allopurinol - URIC ACID 4. Screening for depression - ICD9: V79.0, ICD10: Z13.31 - DEPRESSION SCREENING 5. Encounter for screening examination for other mental health and behavioral disorders - ICD9: V79.8, ICD10: Z13.39 - ANXIETY SCREENING Labs today; notify of results Follow up in 3 months to recheck BP and see home readings Medical Decision Making: Problems: Moderate: 1+ chronic illnesses with change and 2+ stable chronic illnesses Data: Unique test(s) ordered: 3+ Risk: Moderate: Drug management Medical Decision Making Level: 4 - Moderate Sonido Knutson MD documented in this encounter [facility] 02-14-2025 Note HNO ID: [id number] Author: SONIDO KNUTSON MD Service: ? Author Type: Physician Type: Progress Notes Filed: 02/14/2025 09:15 Note Text: Chief Complaint Patient presents with: F/U 6 Month HPI Magnolia Henderson is a 49 year old male who presents here today for 6 month follow up. Denies any bowel, Gi, or urinary issues. ANNE: Uses APAP at 10-20 cm water intermittently. This is working well for him when using with benefit. HTN: Taking Norvasc 10 mg daily, Hyzaar 100-25 mg daily, and Labetalol 200 mg 1 pill BID. No chest pains or dizziness. Occasional sob, but feels this is related to lack of exercise. Denies checking BP at home. Has been noticing some swelling in b/l legs the last couple of weeks, improves with elevation.. CKD - Follows with Nephrology, Dr. Martino. Previously seen every 6 months for CKD with routine labs being monitored. Last appt in November. Pt reports that Dr. Martino states since everything has been stable, will only need to be seen as needed. Gout - Was started on Allopurinol 100 mg once daily by Nephrology for recurrent gout flare ups in L ankle. Was seen in last year for this and given Prednisone to treat acutely. Pt asking for PCP to continue treatment as Nephrology only gave him a #30 day Rx. Would like to avoid flare ups. HM - Anx/Dep screening negative. Declines Pneumonia today. Past medical history, appointments, medications, allergies reviewed. Previous Medical History PAST MEDICAL HISTORY Diagnosis Date Chronic kidney disease 09/14/2017 Dysmetabolic syndrome X Hypertension Morbid obesity (HCC) ANNE (obstructive sleep apnea) on CPAP Previous Surgical History PAST SURGICAL HISTORY Procedure Laterality Date COLONOSCOPY N/A 11/09/2023 HERNIA REPAIR W/MESH 04/12/2013 Ventral hernia w/ medium Ventralex patch Family History FAMILY HISTORY Problem Relation Age of Onset Thyroid Mother Kidney Disease Father dialysis Diabetes Other Cousins, uncles Hypertension Father Patient Allergies ALLERGIES No Known Allergies Current Medications Current Outpatient Medications on File Prior to Visit Medication Sig losartan-hydroCHLOROthiazide (HYZAAR) 100-25 mg per tablet Take 1 tablet by mouth once daily. labetalol (TRANDATE) 200 mg tablet Take 1 [...] Never Smokeless tobacco: Never Vaping Use Vaping status: Never Used Substance Use Topics Alcohol use: No Drug use: No EXAM: BP 152/100 (BP Site: Right Arm, BP Position: Sitting, BP Cuff Size: Large Adult) Pulse 70 Resp 16 Wt (!) 170.3 kg (375 lb 7.1 oz) BMI 45.70 kg/m? General Appearance: Well appearing, alert, in no acute distress, well-hydrated, well nourished.. Lungs: Lungs clear to auscultation. No wheezing, rhonchi, rales.. Heart: RRR without murmur, gallop, or rubs. No ectopy. No pitting edema. Health Maintenance List Depression Screening Never done Anxiety Screening Never done BP Controlled (<130/80) Never done Hepatitis B Vaccine(1 of 3 - 19+ 3-dose series) Never done Prostate Cancer Screening Discussion Never done DTaP,Tdap,Td Vaccine(3 - Td or Tdap) due on 04/29/2022 Serum Creatinine due on 03/29/2023 Lipid Screening due on 11/16/2023 Shingrix Vaccine(1 of 2) Never done Pneumococcal Vaccine: 50+(2 of 2 - PCV) due on 2024 Hepatitis C Screening due on 08/16/2025 HIV Screening due on 08/16/2025 Diabetes Screening due on 03/29/2025 Annual PCP Team Chronic Disease Visit due on 08/16/2025 Colorectal Cancer Screening due on 11/08/2028 Influenza Vaccine Completed Covid-19 Vaccine Completed Data reviewed External labs. ASSESSMENT/PLAN: 1. Primary hypertension - ICD9: 401.9, ICD10: I10 (primary diagnosis) - Uncontrolled - Continue current medications - Recommend home blood pressure monitoring, to bring results to next visit - Encouraged sodium restriction, DASH or Mediterranean diet - Recommend regular aerobic exercise - Monitor BP at home to verify control - COMPREHENSIVE METABOLIC PANEL - COMPLETE BLOOD COUNT - LIPID PANEL, FASTING 2. ANNE (obstructive sleep apnea) AHI 110 - ICD9: 327.23, ICD10: G47.33 Continue CPAP 3. Gout, unspecified cause, unspecified chronicity, unspecified site - ICD9: 274.9, ICD10: M10.9 Continue allopurinol - URIC ACID 4. Screening for depression - ICD9: V79.0, ICD10: Z13.31 - DEPRESSION SCREENING 5. Encounter for screening examination for other mental health and behavioral disorders - ICD9: V79.8, ICD10: Z13.39 - ANXIETY SCREENING Labs today; notify of results Follow up in 3 months (more content not included)... [facility] 08-16-2024 History of Presen t illness Narrative Chief Complaint Patient presents with: Follow Up HPI Magnolia Henderson is a 48 year old male who presents here today for medication follow up. Pt here today for a follow up visit. Overdue for a 6 month follow up. Son is keeping him busy, currently 12 years old, in basketball. GI/Uro - No bowel, Gi, or urinary issues. Gets up 1-2 x per night to urinate. Had Colonoscopy completed on 11/09/23, path showed tubular adenoma. HTN: Does not monitor his blood pressure at home. Denies any chest pains, dizziness, or SOB. Taking Hyzaar 100-25 mg daily and Labetalol 200 mg 1 pill BID. CKD - Follows with Nephrology, Dr. Martino every 6 months with routine labs ordered to monitor kidneys. Has an upcoming appt soon. Diet/Exercise - Low LDL on previous lipid panel. Tries to watch his diet by no longer drinking pop, drinking mostly water or some sweet tea, a lot of fruits and vegetables, chicken and avoiding fast foods. Has a son that keeps him active. Was previously walking when the weather was warmer, hasn't been doing this as much with the colder weather. ANNE: Uses CPAP at 10-20 cm water. Hasn't been using this as much due to his mask being broken. Is getting new supplies for this. Receives supplies through [employer]. Feels this is working well for him, when he does use his CPAP. Was seen in Jun at for gout of left ankle. Declined medication at time of visit but then follow day called in requesting tx. Was given 9 day taper of Prednisone, which significantly helped him and resolved the issues. Pt states that generally it effects his right big toe. HM - Declines Hep C/HIV screening. Agreeable to Flu and Covid vaccine. Past medical history, appointments, medications, allergies reviewed. [...] Never Smokeless tobacco: Never Vaping Use Vaping status: Never Used Substance Use Topics Alcohol use: No Drug use: No EXAM: BP 138/94 Pulse 78 Resp 16 Wt (!) 169.4 kg (373 lb 7.4 oz) BMI 45.46 kg/m General Appearance: Well appearing, alert, in no acute distress, well-hydrated, well nourished. and Obese. Lungs: Lungs clear to auscultation. No wheezing, rhonchi, rales.. Heart: RRR without murmur, gallop, or rubs. No ectopy. Health Maintenance List Hepatitis C Screening Never done HIV Screening Never done BP Controlled (<130/80) Never done Hepatitis B Vaccine(1 of 3 - 19+ 3-dose series) Never done DTaP,Tdap,Td Vaccine(3 - Td or Tdap) due on 04/29/2022 Serum Creatinine due on 03/29/2023 Hemoglobin/Hematocrit due on 03/29/2023 Lipid Screening due on 11/16/2023 Influenza Vaccine(1) due on 05/08/2024 Covid-19 Vaccine(2023- season) due on 05/08/2024 Shingrix Vaccine(1 of 2) due on 2024 Annual PCP Team Chronic Disease Visit due on 10/06/2024 Depression Screening due on 10/06/2024 Anxiety Screening due on 10/06/2024 Diabetes Screening due on 03/29/2025 Colorectal Cancer Screening due on 11/08/2028 Data reviewed None ASSESSMENT/PLAN: 1. Primary hypertension - ICD9: 401.9, ICD10: I10 (primary diagnosis) - Elevated today in office - Continue current medications - Recommend home blood pressure monitoring, to bring results to next visit - Encouraged sodium restriction, DASH or Mediterranean diet - Recommend regular aerobic exercise 2. Stage 3 chronic kidney disease, unspecified whether stage 3a or 3b CKD (HCC) - ICD9: 585.3, ICD10: N18.30 - Stable, with routine monitoring of labs - Counseled on avoiding NSAIDs, adequate hydration - Follow up with kidney medicine 3. ANNE (obstructive sleep apnea) AHI 110 - ICD9: 327.23, ICD10: G47.33 - Stable continue using CPAP. 4. Gout, unspecified cause, unspecified chronicity, unspecified site - ICD9: 274.9, ICD10: M10.9 - He states he is taking allopurinol; does not know dosage 5. Encounter for immunization - ICD9: V03.89, ICD10: Z23 - INFLUENZA VACCINE, AGE 6MO-64YR, TRIVALENT (AFLURIA, FLULAVAL, FLUVIRIN, FLUZONE) - [employer] COVID-19 VACCINE AGE 12+ YR (COMIRNATY) 6 mo f/u. Labs monitored through Nephrology. I agree with the Chief Complaint, ROS, and Past Histories independently gathered by the clinical product support specialist and the remaining scribed note accurately describes my personal service to the patient. Medical Decision Making: Problems: Moderate: 2+ stable chronic illnesses Risk: Moderate: Drug management Medical Decision Making Level: 4 - Moderate Sonido Knutson MD The documentation for this note was completed by Rosa Ybarra MA acting as scribe for Sonido Knutson MD. August 16, 2024 8:51 AM. Rosa Ybarra MA documented in this encounter [facility] 08-16-2024 Note HNO ID: [id number] Author: SONIDO KNUTSON MD Service: ? Author Type: Physician Type: Progress Notes Filed: 08/16/2024 10:37 Note Text: Chief Complaint Patient presents with: Follow Up HPI Magnolia Henderson is a 48 year old male who presents here today for medication follow up. Pt here today for a follow up visit. Overdue for a 6 month follow up. Son is keeping him busy, currently 12 years old, in basketball. GI/Uro - No bowel, Gi, or urinary issues. Gets up 1-2 x per night to urinate. Had Colonoscopy completed on 11/09/23, path showed tubular adenoma. HTN: Does not monitor his blood pressure at home. Denies any chest pains, dizziness, or SOB. Taking Hyzaar 100-25 mg daily and Labetalol 200 mg 1 pill BID. CKD - Follows with Nephrology, Dr. Martino every 6 months with routine labs ordered to monitor kidneys. Has an upcoming appt soon. Diet/Exercise - Low LDL on previous lipid panel. Tries to watch his diet by no longer drinking pop, drinking mostly water or some sweet tea, a lot of fruits and vegetables, chicken and avoiding fast foods. Has a son that keeps him active. Was previously walking when the weather was warmer, hasn't been doing this as much with the colder weather. ANNE: Uses CPAP at 10-20 cm water. Hasn't been using this as much due to his mask being broken. Is getting new supplies for this. Receives supplies through [employer]. Feels this is working well for him, when he does use his CPAP. Was seen in Jun at for gout of left ankle. Declined medication at time of visit but then follow day called in requesting tx. Was given 9 day taper of Prednisone, which significantly helped him and resolved the issues. Pt states that generally it effects his right big toe. HM - Declines Hep C/HIV screening. Agreeable to Flu and Covid vaccine. Past medical history, appointments, medications, allergies reviewed. [...] Never Smokeless tobacco: Never Vaping Use Vaping status: Never Used Substance Use Topics Alcohol use: No Drug use: No EXAM: BP 138/94 Pulse 78 Resp 16 Wt (!) 169.4 kg (373 lb 7.4 oz) BMI 45.46 kg/m? General Appearance: Well appearing, alert, in no acute distress, well-hydrated, well nourished. and Obese. Lungs: Lungs clear to auscultation. No wheezing, rhonchi, rales.. Heart: RRR without murmur, gallop, or rubs. No ectopy. Health Maintenance List Hepatitis C Screening Never done HIV Screening Never done BP Controlled (<130/80) Never done Hepatitis B Vaccine(1 of 3 - 19+ 3-dose series) Never done DTaP,Tdap,Td Vaccine(3 - Td or Tdap) due on 04/29/2022 Serum Creatinine due on 03/29/2023 Hemoglobin/Hematocrit due on 03/29/2023 Lipid Screening due on 11/16/2023 Influenza Vaccine(1) due on 05/08/2024 Covid-19 Vaccine( season) due on 05/08/2024 Shingrix Vaccine(1 of 2) due on 2024 Annual PCP Team Chronic Disease Visit due on 10/06/2024 Depression Screening due on 10/06/2024 Anxiety Screening due on 10/06/2024 Diabetes Screening due on 03/29/2025 Colorectal Cancer Screening due on 11/08/2028 Data reviewed None ASSESSMENT/PLAN: 1. Primary hypertension - ICD9: 401.9, ICD10: I10 (primary diagnosis) - Elevated today in office - Continue current medications - Recommend home blood pressure monitoring, to bring results to next visit - Encouraged sodium restriction, DASH or Mediterranean diet - Recommend regular aerobic exercise 2. Stage 3 chronic kidney disease, unspecified whether stage 3a or 3b CKD (HCC) - ICD9: 585.3, ICD10: N18.30 - Stable, with routine monitoring of labs - Counseled on avoiding NSAIDs, adequate hydration - Follow up with kidney medicine 3. ANNE (obstructive sleep apnea) AHI 110 - ICD9: 327.23, (more content not included)... [facility] 07-15-2024 Telephone encount er Note Left detailed message on identifiable voicemail. [facility] 07-15-2024 Miscellaneous Notes Formattin g of this note might be different from the original. Left detailed message on identifiable voicemail. OK for 9 day prednisone taper as ordered Sonido Knutson MD Patient was seen in urgent care yesterday for gout in left ankle area. PATIENT declined med at that time. PATIENT now wants meds this AM. offered steroid and colchicine which he now wants. Pharmacy: [facility] Please review and advise. Brittny Phelps LPN documented in this encounter [facility] 07-15-2024 Telephone encount er Note OK for 9 day prednisone taper as ordered Sonido Knutson MD [facility] 07-15-2024 Telephone encount er Note Patient was seen in urgent care yesterday for gout in left ankle area. PATIENT declined med at that time. PATIENT now wants meds this AM. offered steroid and colchicine which he now wants. Pharmacy: [facility] Please review and advise. Brittny Phelps LPN [facility] 07-14-2024 Note HNO ID: [id number] Author: BRADEN BELL MD Service: ? Author Type: Physician Type: Progress Notes Filed: 07/14/2024 09:28 Note Text: Patient presents with: Gout: L ankle x2 days HPI: Left ankle pain: Duration: started flaring up 3 days ago Location: left ankle Character: burning in the joint, starting to improve today Aggravating: walking Relieving: He missed his allopurinol doses, but feels it is getting better since he resumed it. Pain relievers: Ice, unable to use NSAIDs due to CKD. Associated: swelling, Hx of gout in the same location, he had a URI a few days ago with cough and nasal congestion. Pertinent negatives: Denies numbness, bruising, injury MEDICATIONS: labetalol (TRANDATE) 200 mg tablet Take 1 [...] rash/itching. CPAP AutoPAP 10-20 cmH2O. Dx: ANNE ALLERGIES: ALLERGIES No Known Allergies VITALS: BP 147/97 Pulse 67 Temp 36.1 ?C (97 ?F) Resp 18 Wt (!) 167.3 kg (368 lb 13.3 oz) SpO2 97% BMI 44.90 kg/m? PHYSICAL EXAM: GEN: pleasant, alert, no acute distress ANKLE: left, compared to right. Swelling over the lateral ankle. Range of motion: inversion - painful, eversion - non-painful, anterior drawer- non-painful. able to bear weight. normal gait. Palpation: Medial malleolus non-painful, lateral malleolus non-painful, Dorsal proximal midfoot - non-painful, ASSESSMENT/PLAN: 1. Acute gout of left ankle, unspecified cause - ICD9: 274.01, ICD10: M10.9 Improving symptoms. He would like to continue preventive medication and expectant management. I discussed additional treatments available for gout which are safe with decreased kidney function (steroid, colchicine). Braden Bell MD [facility] 07-14-2024 History of Presen t illness Narrative Patient presents with: Gout: L ankle x2 days HPI: Left ankle pain: Duration: started flaring up 3 days ago Location: left ankle Character: burning in the joint, starting to improve today Aggravating: walking Relieving: He missed his allopurinol doses, but feels it is getting better since he resumed it. Pain relievers: Ice, unable to use NSAIDs due to CKD. Associated: swelling, Hx of gout in the same location, he had a URI a few days ago with cough and nasal congestion. Pertinent negatives: Denies numbness, bruising, injury MEDICATIONS: labetalol (TRANDATE) 200 mg tablet Take 1 [...] rash/itching. CPAP AutoPAP 10-20 cmH2O. Dx: ANNE ALLERGIES: ALLERGIES No Known Allergies VITALS: BP 147/97 Pulse 67 Temp 36.1 C (97 F) Resp 18 Wt (!) 167.3 kg (368 lb 13.3 oz) SpO2 97% BMI 44.90 kg/m PHYSICAL EXAM: GEN: pleasant, alert, no acute distress ANKLE: left, compared to right. Swelling over the lateral ankle. Range of motion: inversion - painful, eversion - non-painful, anterior drawer- non-painful. able to bear weight. normal gait. Palpation: Medial malleolus non-painful, lateral malleolus non-painful, Dorsal proximal midfoot - non-painful, ASSESSMENT/PLAN: 1. Acute gout of left ankle, unspecified cause - ICD9: 274.01, ICD10: M10.9 Improving symptoms. He would like to continue preventive medication and expectant management. I discussed additional treatments available for gout which are safe with decreased kidney function (steroid, colchicine). Braden Bell MD documented in this encounter [facility] 03-28-2024 Telephone encount er Note Form completed and OV note attached to fax. Paperwork faxed back to [facility] at number below. Rosa Ybarra MA [facility] 03-28-2024 Miscellaneous Notes Formattin g of this note might be different from the original. Form completed and OV note attached to fax. Paperwork faxed back to [facility] at number below. Rosa Ybarra MA Type of form: Medical Necessity from [employer] Form received via fax When form is completed, Fax form to [phone] Form has been forwarded to Physician Desk: Dr. Eagle Ybarra MA documented in this encounter [facility] 03-28-2024 Telephone encount er Note Type of form: [facility] via fax When form is completed, Fax form to [phone] Form has been forwarded to Physician Desk: Dr. Eagle Ybarra MA [facility] 11-09-2023 Miscellaneous Notes Formattin g of this note might be different from the original. The patient received a copy of Colonoscopy discharge instructions that contain information for how to contact the physician who performed the procedure and when to seek medical care. documented in this encounter [facility] 11-09-2023 Nurse Note Abdomen soft non-distended. Will continue to monitor. documented in this encounter [facility] 11-09-2023 History and physical note UPDATED PROCEDURAL [...] SIGNATURE: Fallon Culver MD PATIENT NAME: Magnolia Henderson DATE: November 09, 2023 TIME: 9:29 AM Source Note - Fallon Culver MD - 11/09/2023 10:00 AM EST HISTORY AND PHYSICAL Magnolia Henderson 1975 REFERRING PHYSICIAN: Sonido Knutson MD CHIEF [...] Fallon Culver MD HISTORY AND PHYSICAL Magnolia Henderson 1975 REFERRING PHYSICIAN: Sonido Knutson MD CHIEF [...] Fallon Culver MD documented in this encounter [facility] 08-30-2023 History of Presen t illness Narrative Subjective HPI HPI Magnolia Henderson is a 48 year old male who [...] - OSELTAMIVIR 75 MG CAPSULE Bentley Dias APRN.CONSTRUCTION SALES REPRESENTATIVE documented in this encounter [facility] 08-07-2023 Miscellaneous Notes Formattin g of this [...] tablet by mouth once daily. Irving Smith APRN.GAURANG Patient last visit with PCP 01/27/23 Follow up appointment scheduled 09/01/23 Suyapa Bee Ma documented in this encounter [facility] 06-10-2023 Instructions Senia Land APRN.CNP - 06/10/2023 [...] inability to swallow. documented in this encounter [facility] 06-10-2023 History of Presen t illness Narrative Images from the original note were not included. Subjective HPI HPI Magnolia Henderson is a 47 year old male who [...] have confirmed and edited as necessary, the [facility] Review of Systems Constitutional: Negative for [...] Senia Land APRN.GAURANG documented in this encounter [facility] 07-22-2022 History of Presen t illness Narrative Chief Complaint Patient presents with: F/U 6 Month HPI Magnolia Henderson is a 46 year old male who [...] well with this.Tolerates well. Receives supplies through [employer]. HM - Agrees to flu shot. Agrees [...] Past Histories independently gathered by the clinical product support specialist and the remaining scribed note accurately describes my personal service to the patient. Medical Decision Making: Problems: Moderate: 2+ stable chronic illnesses Risk: Moderate: Drug management Medical Decision Making Level: 4 - Moderate Sonido Knutson MD The documentation for this note was completed by Rosa Ybarra Ma acting as scribe for Sonido Knutson MD. July 22, 2022 9:05 AM. Rosa Ybarra Ma documented in this encounter [facility] 05-23-2009 History of Past i llness Narrative Problem Noted Date Resolved Date Gastritis 05/23/2009 09/14/2017 Obesity, unspecified 06/30/2007 05/02/2010 Unspecified urinary incontinence 06/30/2007 09/14/2017 documented as of this encounter (statuses as of 07/24/2022) [facility] History of Past illness Narrative* Problem Noted Date Diagnosed Date Resolved Date Gastritis 05/23/2009 09/14/2017 Obesity, unspecified 06/30/2007 010 Unspecified urinary incontinence 06/30/2007 09/14/2017 documented as of this encounter (statuses as of 06/11/2023) [facility] History of Past illness Narrative* Problem Noted Date Diagnosed Date Resolved Date Gastritis 05/23/2009 09/14/2017 Obesity, unspecified 06/30/2007 010 Unspecified urinary incontinence 06/30/2007 09/14/2017 documented as of this encounter (statuses as of 08/07/2023) [facility] History of Past illness Narrative* Problem Noted Date Diagnosed Date Resolved Date Gastritis 05/23/2009 09/14/2017 Obesity, unspecified 06/30/2007 010 Unspecified urinary incontinence 06/30/2007 09/14/2017 documented as of this encounter (statuses as of 08/30/2023) [facility] History of Past illness Narrative* Problem Noted Date Diagnosed Date Resolved Date Gastritis 05/23/2009 09/14/2017 Obesity, unspecified 06/30/2007 010 Unspecified urinary incontinence 06/30/2007 09/14/2017 documented as of this encounter (statuses as of 11/10/2023) [facility] noteNo assessment information availableWGalion [facility] Work Phone: Evaluation note* Diagnosis Essential hypertension- Primary Unspecified essential hypertension ANEN (obstructive sleep apnea) AHI 110 Obstructive sleep apnea (adult) (pediatric) Stage 3 chronic kidney disease, unspecified whether stage 3a or 3b CKD (HCC) Need for influenza vaccination Need for prophylactic vaccination and inoculation against influenza Need for COVID-19 vaccine documented in this encounter [facility] note* Diagnosis Insect bite of abdominal wall, initial encounter- Primary documented in this encounter [facility] note* Diagnosis Essential hypertension Unspecified essential hypertension documented in this encounter [facility] note* Diagnosis Influenza A- Primary Influenza with other respiratory manifestations Influenza-like illness Influenza with other respiratory manifestations documented in this encounter [facility] note* Diagnosis Screening for colon cancer- Primary Special screening for malignant neoplasms, colon Special screening for malignant neoplasms, colon documented in this encounter [facility] note* Diagnosis Acute gout of left ankle, unspecified cause- Primary documented in this encounter [facility] note* Diagnosis Primary hypertension- Primary Unspecified essential hypertension Stage 3 chronic kidney disease, unspecified whether stage 3a or 3b CKD (HCC) ANNE (obstructive sleep apnea) AHI 110 Obstructive sleep apnea (adult) (pediatric) Gout, unspecified cause, unspecified chronicity, unspecified site Encounter for immunization Need for other specified prophylactic vaccination against single bacterial disease documented in this encounter [facility] note* Diagnosis Primary hypertension- Primary Unspecified essential hypertension ANNE (obstructive sleep apnea) AHI 110 Obstructive sleep apnea (adult) (pediatric) Gout, unspecified cause, unspecified chronicity, unspecified site Screening for depression Encounter for screening examination for other mental health and behavioral disorders documented in this encounter [facility] note* Diagnosis Stage 3 chronic kidney disease, unspecified whether stage 3a or 3b CKD (HCC)- Primary Gout, unspecified cause, unspecified chronicity, unspecified site documented in this encounter [facility] for referral (narrative)* Outpatient Procedure (Routine) - Closed Specialty Diagnoses / Procedures Referred By Contmauricio t Referred To Contact [facility] Diagnoses Special screening for malignant neoplasms, colon Procedures COLONOSCOPY SCREENING COLONOSCOPY FLX DX W/COLLJ SPEC WHEN Sonido Dominique MD [address] [place] [address] [facility] [place] [address] Referral ID Status Reason Start Date Expiration Date V isits Requested Visits Authorized [id number] Closed Auto-Generate d Referral 10/06/2023 10/06/2024 1 1 [facility])No reason for referral information availableWGalion Hospital Work Phone: Reason for visit Narrative* Outpatient Procedure (Routine) - Closed Specialty Diagnoses / Procedures Referred By Contac t Referred To Contact [facility] Diagnoses Special screening for malignant neoplasms, colon Procedures COLONOSCOPY SCREENING COLONOSCOPY FLX DX W/COLLJ SPEC WHEN [facility] Sonido Knutson MD [address] [place] [address] [facility] [address] [place] [address] Referral ID Status Reason Start Date Expiration Date V isits Requested Visits Authorized [id number] Closed Auto-Generate d Referral 10/06/2023 10/06/2024 1 1 [facility] Advance Directives No Advanced Directives Records Found Advance Directive Response Recorded Date/ Time Living Will No September 01 12:35pm Power of Mine Utility Operator No September 01, 2020 12:35pm Summary Purpose Family History No Family History Records FoundNo Family History Records Found Chief Complaint and Reason for Visit Chief Complaint Admit Date NEED ORDER November 08, 2024 8:12 am Additional Source Comments Goals (unrecognized section and content) Goals may be documented in a n alternate sectionGoals may be documented in an alternate sectionGoals may be documented in an alternate sectionGoals may be documented in an alternate sectionGoals may be documented in an alternate section Source Comments (unrecognize d section and content) In the event this informatio n is protected by the Federal Confidentiality of Alcohol and Drug Abuse Patient Records regulations: The Federal rules restrict any use of the information to criminally investigate or prosecute any alcohol or drug abuse patient.[facility] the event this information is protected by the Federal Confidentiality of Alcohol and Drug Abuse Patient Records regulations: The Federal rules restrict any use of the information to criminally investigate or prosecute any alcohol or drug abuse patient.[facility] the event this information is protected by the Federal Confidentiality of Alcohol and Drug Abuse Patient Records regulations: The Federal rules restrict any use of the information to criminally investigate or prosecute any alcohol or drug abuse patient.[facility] the event this information is protected by the Federal Confidentiality of Alcohol and Drug Abuse Patient Records regulations: The Federal rules restrict any use of the information to criminally investigate or prosecute any alcohol or drug abuse patient.[facility] the event this information is protected by the Federal Confidentiality of Alcohol and Drug Abuse Patient Records regulations: The Federal rules restrict any use of the information to criminally investigate or prosecute any alcohol or drug abuse patient.[facility] the event this information is protected by the Federal Confidentiality of Alcohol and Drug Abuse Patient Records regulations: The Federal rules restrict any use of the information to criminally investigate or prosecute any alcohol or drug abuse patient.[facility] the event this information is protected by the Federal Confidentiality of Alcohol and Drug Abuse Patient Records regulations: The Federal rules restrict any use of the information to criminally investigate or prosecute any alcohol or drug abuse patient.[facility] the event this information is protected by the Federal Confidentiality of Alcohol and Drug Abuse Patient Records regulations: The Federal rules restrict any use of the information to criminally investigate or prosecute any alcohol or drug abuse patient.[facility] the event this information is protected by the Federal Confidentiality of Alcohol and Drug Abuse Patient Records regulations: The Federal rules restrict any use of the information to criminally investigate or prosecute any alcohol or drug abuse patient.[facility] the event this information is protected by the Federal Confidentiality of Alcohol and Drug Abuse Patient Records regulations: The Federal rules restrict any use of the information to criminally investigate or prosecute any alcohol or drug abuse patient.[facility] the event this information is protected by the Federal Confidentiality of Alcohol and Drug Abuse Patient Records regulations: The Federal rules restrict any use of the information to criminally investigate or prosecute any alcohol or drug abuse patient.[facility] Reason for Visit (unrecogniz ed section and content) Reason Onset Date Comments F/U 6 Month Immunizations 07/22/2022 Flu vaccination Reason Comments Insect Bite Abdomen x2 days Reason Onset Date Comments Refill Request 08/07/2023 Reason Comments Chest Congestion cough and fatigue x 2 days Reason Comments Forms Reason Comments Gout L ankle x2 days Reason Comments Gout patient now wants me dications. patient was seen in urgent care yesterday Reason Comments Follow Up Reason Comments F/U 6 Month Reason Onset Date Comments Results 02/14/2025 Care Teams (unrecognized sec tion and content) Lead Instructor/Flight Attendant Relationship Specialty Start Date End Date Sonido Knutson MD [address] [place], [place] [id number] PCP - General Family Medicine 05/22/15 Team Status: Active Member Role Status Dates Dr. Sonido Knutson MD Family Provider Active Dr. Sonido Knutson MD Primary Care Provider Active Team Status: Inactive Member Role Status Dates Dr. Sonido Knutson MD Primary Care Provider Active Dr. Leola Martino DO Attending Provider Active Lead Instructor/Flight Attendant Relationship Specialty Start Date End Date Sonido Knutson MD [address] [place] [address] PCP - General Family Medicine 05/22/15 Lead Instructor/Flight Attendant Relationship Specialty Start Date End Date Sonido Knutson MD [address] [place] [address] PCP - General Family Medicine 05/22/15 Lead Instructor/Flight Attendant Relationship Specialty Start Date End Date Sonido Knutson MD [address] [place] [address] PCP - General Family Medicine 05/22/15 Team Status: Inactive Member Role Status Dates Dr. Sonido Knutson MD Primary Care Provider Active Dr. Leola Martino DO Attending Provider, Aiden choudhury Active Lead Instructor/Flight Attendant Relationship Specialty Start Date End Date Sonido Knutson MD [address] [place] [address] PCP - General Family Medicine 05/22/15 Lead Instructor/Flight Attendant Relationship Specialty Start Date End Date Sonido Knutson MD [address] [place] [address] PCP - General Family Medicine 05/22/15 Trista Thurston APRN.CNP [address] [place] [address] Deputy Editor In Chief Family Medicine 08/14/24 Team Status: Inactive Member Role Status Dates Dr. Sonido Knutson MD Primary Care Provider Active Start: November 08, 2024 End: November 08, 2024 Dr. Leola Martino DO Attending Provider Active Start: November 08, 2024 End: November 08, 2024 Dr. Leola Martino DO Referring Provider Active Start: November 08, 2024 End: November 08, 2024 Lead Instructor/Flight Attendant Relationship Specialty Start Date End Date Sonido Knutson MD [address] [place], [place] [address] PCP - General Family Medicine 05/22/15 Irving Smith APRN.CONSTRUCTION SALES REPRESENTATIVE [address] [place], [place] [id number] [facility] 08/23/24 Lead Instructor/Flight Attendant Relationship Specialty Start Date End Date Sonido Knutson MD [address] [place], [place] [id number] PCP - General Family Medicine 05/22/15 Irving Smith APRN.CONSTRUCTION SALES REPRESENTATIVE [address] [place], [place] [id number] [facility] 08/23/24 Inactive Administered Medications - up to 3 most recent administrations Administered Medications (un recognized section and content) Medication Order MAR Action Action Date Dose Rate Site diphenhydrAMINE 12.5-50 mg injection (BENADRYL) 12.5-50 mg, INTRAVENOUS, DIRECTED, Starting on Thu11/09/23 at 1000, Until Thu11/09/23 at 1359, DOSING DIRECTED BY PHYSICIAN FOR PROCEDURAL SEDATION ONLY, Intraprocedure Given 11/09/2023 9:43 AM EST 50 mg fentaNYL 50 mcg/mL 25-100 mcg injection (SUBLIMAZE) 25-100 mcg, INTRAVENOUS, DIRECTED, Starting on Thu11/09/23 at 1000, Until Thu11/09/23 at 1359, DOSING DIRECTED BY PHYSICIAN FOR PROCEDURAL SEDATION ONLY, Intraprocedure Given 11/09/2023 9:49 AM EST 50 mcg Given 11/09/2023 9:41 AM EST 50 mcg lactated ringers iv infusion 75 mL/hr, INTRAVENOUS, CONTINUOUS, Starting on Thu11/09/23 at 0930, Until Thu11/09/23 at 1027, Preprocedure New Bag/Syringe/Bottle 11/09/2023 9:35 AM EST 75 mL/hr 75 mL/hr midazolam (PF) 1-5 mg injection (VERSED) 1-5 mg, INTRAVENOUS, DIRECTED, Starting on Thu11/09/23 at 1000, Until Thu11/09/23 at 1359, DOSING DIRECTED BY PHYSICIAN FOR PROCEDURAL SEDATION ONLY, Intraprocedure Given 11/09/2023 9:45 AM EST 2 mg Given 11/09/2023 9:41 AM EST 3 mg simethicone 20-40 mg oral liquid (MYLICON) 20-40 mg, OTHER, DIRECTED, Starting on Thu11/09/23 at 1000, Until Thu11/09/23 at 1359, Dosing as directed for intraprocedural use only Shake Well, Intraprocedure Given 11/09/2023 9:52 AM EST 40 mg (unrecognized sect ion and content) No Status Records FoundNo Status Records Found INFORMATION SOURCE (unrecogn ized section and content) DATE CREATED AUTHOR 11/24/2024 [facility] DATE CREATED AUTHOR AUTHOR'S VALENCIA HENDRIX 02/15/2025 [facility] FOR RECORDS PERTAINING TO PATIENTS WHO ARE [...] BE BASED ON THE PRIMARY CLINICAL RECORDS. [employer] provides no warranty or guarantee of the accuracy or completeness of information in this document.
--- NOTE | 2025-03-10 17:11 | EDS_ITS ---
HPI History of Present Illness Chief Complaint: Edema Narrative Narrative: Patient is a 49-year-old male with past medical history of kidney disease, hypertension who presented to the emergency department the chief complaint of lower leg swelling. He states that his bilateral lower legs have been swelling intermittently for the past week or more and notes that he felt that today he had worse swelling in his left leg. He states that he was going to urgent care however they were closed therefore he came here for the valuation management. He states that has been staying up late and playing videogames doing a lot more sitting recently and knows that this is probably contributing to his swelling. Patient denies any history of blood clots denies any recent travel or surgeries. [facility] Medical History Kidney disease HTN (hypertension) Home Medications ?Medication ?Instructions ?Recorded ?Last Taken ?Type allopurinol 300 mg tablet 300 mg PO DAILY 03/10/25 Unk nown History amlodipine 10 mg tablet 10 mg PO DAILY 03/10/25 Unkn own History labetalol 200 mg tablet 200 mg PO BID 03/10/25 Unkno wn History losartan 100 1 tab PO DAILY 03/10/25 Unkn own History mg-hydrochlorothiazide 25 mg tablet Allergy/AdvReac Type Severity Reaction Status Date / Time No Known Allergies Allergy Verified 03/10/25 16:11 Surgical History History of hernia repair Social History Smoking Status: Never smoker ROS ROS ED ROS Narrative Constitutional: Denies headache, fever, chills, lightness, dizziness Eyes: Denies double vision changes vision Cardiovascular: Denies chest pain Respiratory: Denies cough or wheezing shortness of breath Abdomen: Denies abdominal pain nausea vomit diarrhea : Denies urinary symptoms Neurological: Denies numbness, wheeze, tingling Musculoskeletal: Complains of bilateral lower extremity swelling as noted above Skin: Denies any rashes or lesions EXAM Physical Exam Narrative Exam Narrative: General: Patient lying bed rest comfortably did not appear to be acute distress Head: Atraumatic, normocephalic Eyes: PERRL bilaterally, EOMI bilateral, no conjunctival injection noted Neck: Soft and supple, trachea midline Cardiovascular: Regular rate and rhythm no murmurs gallops rubs noted Respiratory: Clear to auscultation bilaterally no rales rhonchi or wheezes noted Abdomen: Soft, nondistended, nontender to palpation Extremities: DP pulses +2/4 in the bilateral extremities, +1 pitting edema in the bilateral lower extremities, compartments are soft compressible Neurological: Patient follow commands knew that he was at [facility] year is 2024 sensation grossly intact Skin: Warm, dry, tact no rashes or lesions noted Const Vital Signs: 03/10/25 16:11 03/10/25 16:36 Temperature 98.2 F Temperature Source Oral Pulse Rate 85 Respiratory Rate 20 H Respiratory Effort Normal Non-Labored Respiratory Pattern Normal Blood Pressure 206/121 H Blood Pressure Mean 149 Pulse Ox 97 MDM MDM MDM Narrative Medical decision making narrative: Patient is a 49-year-old male who presented to the emerged part with concern for bilateral lower extremity swelling with the left worse than the right. On the differential diagnose includes but not limited to venous insufficiency, DVT, superficial venous thrombosis. At this point in time do not have ultrasound capabilities given the holiday therefore will perform bedside ultrasound. If there are no large clots evidence we will give him ultrasound prescription for tomorrow which she can have completed. He is low risk for blood clots at this point time and if the ultrasound is negative do not feel that he warrants any Lovenox. Patient remains asymptomatic he is advised to continue take his blood pressure medications as prescribed and keep a close eye on his blood pressure is elevated here in the emergency department this will be repeated prior to discharge. Patient is agreeable this plan all question concerns answered he was discharged home in stable condition. Discharge Plan Triage Chief Complaint: Edema ED Provider: Ezequiel Adams Dx/Rx/DC Orders Clinical Impression: Left leg swelling, Right leg swelling, History of hypertension Prescriptions: No Action labetalol 200 mg tablet 200 mg PO BID losartan-hydrochlorothiazide 100-25 mg tablet 1 tab PO DAILY amlodipine 10 mg tablet 10 mg PO DAILY allopurinol 300 mg tablet 300 mg PO DAILY Other Ambulatory Orders: Venous Duplex US, Unilateral (Stat) Facility: [facility] - Location: [facility] Ordered By: Dr. Ezequiel Adams Primary Care Provider: Chon Guillermo Referrals: Chon Guillermo MD [Primary Care Provider] - Activity Restrictions/Additional Instructions: Have your ultrasound performed tomorrow here at the hospital. Return with worsening symptoms or other concerns. Keep a close eye and your blood pressure take your blood pressure as prescribed. Print Language: Indonesian Disposition Disposition: Home, Self Care
[2025-03-10 17:34] VITALS: BP 170/96; PULSE 72; RESP 18; TEMP 36.6; O2SAT 99
== END 2025-03-10 17:35 | disposition home or self-care (01) ==
PROVIDERS: Emergency Provider Emergency Medicine; PCP Family Medicine; Visit Provider Emergency Medicine
DX: M79.89 Other specified soft tissue disorders (principal); I10 Essential (primary) hypertension; R60.9 Edema, unspecified; Z79.899 Other long term (current) drug therapy
CPT/HCPCS: 99282

== ENCOUNTER → 2025-03-11 | Outpatient (CLI) | payer OTHER, SELFPAY | END | disposition home or self-care (01) | LOC: US 11:29 | PROVIDERS: PCP Family Medicine; Referring Provider Emergency Medicine; Visit Provider Emergency Medicine | DX: M79.604 Pain in right leg (principal) | CPT/HCPCS: 93971 ==